=== PATIENT | male | born 1970 ===

== ENCOUNTER 2020-04-14 11:08 | Outpatient (REF) | payer BC, SELFPAY | END 2020-04-14 11:09 | disposition home or self-care (01) | LOC: HO.LAB 11:08 | PROVIDERS: PCP Internal Medicine; Visit Provider Internal Medicine | DX: Z20.822 Contact with and (suspected) exposure to COVID-19 (principal) | CPT/HCPCS: 36415; C9803; U0003; U0005 ==

== ENCOUNTER 2020-05-16 09:06 | Outpatient (REF) | payer BC, SELFPAY | END 2020-05-16 09:07 | disposition home or self-care (01) | LOC: HO.LAB 09:06 | PROVIDERS: Visit Provider Internal Medicine | DX: Z20.822 Contact with and (suspected) exposure to COVID-19 (principal) | CPT/HCPCS: 36415; C9803; U0003; U0005 ==

== ENCOUNTER 2020-05-28 11:55 | Outpatient (REF) | payer BC, SELFPAY | END 2020-05-28 11:56 | disposition home or self-care (01) | LOC: HO.LAB 11:55 | PROVIDERS: Visit Provider Nurse Practitioner Family | DX: Z13.89 Encounter for screening for other disorder (principal) ==

== ENCOUNTER 2020-05-28 12:10 | Outpatient (REF) | payer BC, SELFPAY ==
--- NOTE | ~2020-05-28 | XR_ITS ---
EXAMINATION: XR CHEST CLINICAL INFORMATION: Cough. COMPARISON: None TECHNIQUE: 2 views of the chest were obtained. FINDINGS: Lungs are hyperinflated and clear. The heart size and pulmonary vascularity is normal. No pleural effusion or pneumothorax. No gross bony abnormality. XR/XR chest 2V IMPRESSION: Hyperinflated lungs without acute process.
[2020-05-28 14:54] LABS: Influenza A PCR NEGATIVE (Negative); Influenza B PCR NEGATIVE (Negative); Resp Syncy Virus RNA Qual PCR NEGATIVE (Negative); SARS COV2 PCR INHOUSE NEGATIVE (Negative)
== END 2020-05-28 12:11 | disposition home or self-care (01) ==
LOC: HO.HMGCX 12:10
PROVIDERS: PCP Internal Medicine; Visit Provider Nurse Practitioner Family
DX: R05 Cough (principal); Z20.822 Contact with and (suspected) exposure to COVID-19
CPT/HCPCS: 0241U; 36415; 71046

== ENCOUNTER 2020-10-16 14:05 | Outpatient (REF) | payer OTHER, SELFPAY ==
--- NOTE | ~2020-10-16 | XR_ITS ---
EXAMINATION: XR ABDOMEN COMPLETE CLINICAL INDICATION: K59.00 - Constipation, unspecified COMPARISON: None TECHNIQUE: Supine x2 views of the abdomen are obtained. Upright view is also obtained for a total of 3 views. FINDINGS: There is scattered gas in the bowel of normal caliber. There is no gaseous dilatation of bowel or abnormal collections of gas. There is no excessive stool burden. No air-fluid levels or free air or pneumatosis. No visible urinary tract calculi. The lung bases are clear. Bony structures are unremarkable. XR/XR abdomen min 2V IMPRESSION: Unremarkable examination.
== END 2020-10-16 14:06 | disposition home or self-care (01) ==
LOC: HO.HMGCX 14:05
PROVIDERS: PCP Internal Medicine; Visit Provider Hospitalist
DX: K59.00 Constipation, unspecified (principal)
CPT/HCPCS: 74019

== ENCOUNTER 2020-12-05 11:38 | Outpatient (REF) | payer OTHER, SELFPAY ==
[2020-12-05 13:37] LABS: Alanine Aminotransferase 31 U/L (0-40); Albumin Level 4.6 g/dL (3.5-5.0); Alkaline Phosphatase 58 U/L (39-117); Anion Gap 11 (12-20); Aspartate Amino Transferase 24 U/L (5-37); Bilirubin Total 2.1 mg/dL (0.0-1.0); Blood Urea Nitrogen 9 mg/dL (9-16); Calcium 10.2 mg/dL (8.4-10.2); Carbon Dioxide 28 mmol/L (22-29); Chloride 103 mmol/L (96-108); Cholesterol 272 mg/dL; Estimated Glomerular Filt Rate > 60; Glucose Fasting 88 mg/dL (60-99); HDL Cholesterol 28 mg/dL; LDL Cholesterol Calculated 204 mg/dl; Potassium 4.8 mmol/L (3.3-5.1); Sodium 137 mmol/L (135-145); Triglycerides 204 mg/dL
== END 2020-12-05 11:39 | disposition home or self-care (01) ==
LOC: HO.LAB 11:38
PROVIDERS: PCP Internal Medicine; Visit Provider Internal Medicine
DX: R74.01 Elevation of levels of liver transaminase levels (principal); E78.5 Hyperlipidemia, unspecified
CPT/HCPCS: 36415; 80053; 80061

== ENCOUNTER 2021-03-22 06:25 | Emergency (ER) | payer OTHER, SELFPAY ==
--- NOTE | ~2021-03-22 | XR_ITS ---
EXAMINATION: XR CHEST CLINICAL INFORMATION: Dyspnea COMPARISON: Previous chest x-ray April 2020 TECHNIQUE: Frontal view of the chest was obtained. FINDINGS: No significant abnormality is noted involving the heart, lungs, mediastinum, bony thorax or soft tissues. XR/XR chest 1V IMPRESSION: Unremarkable examination.
[2021-03-22 07:07] VITALS: PULSE 109; RESP 28; O2SAT 100; BMI 23.6
--- NOTE | 2021-03-22 07:24 | ECG_ITS ---
Test Reason : DIZZ Blood Pressure : / mmHG Vent. Rate : 095 BPM Atrial Rate : 095 BPM P-R Int : 158 ms QRS Dur : 086 ms QT Int : 340 ms P-R-T Axes : 005 034 023 degrees QTc Int : 427 ms Normal sinus rhythm Nonspecific T wave abnormality Abnormal ECG No previous ECGs available Referred By: Generic ED Physician Electronically Signed By:Johann Melgar
[2021-03-22 07:35] LABS: Hemoglobin 15.7 g/dl (14.0-18.0); Mean Corpuscular HGB Conc 34.9 g/dl (31.0-36.0); Mean Platelet Volume 9.2 fL (9.4-12.4); Platelet Count 340 X10*3/uL (160-400); Red Blood Count 5.23 X10*6/uL (4.60-5.80); Red Cell Distribution Width 14.6 % (11.0-16.0); White Blood Count 7.4 X10*3/uL (4.8-10.8)
[2021-03-22] MEDS: LORazepam 2 MG/ML VIAL 1 MG IVPUSH (07:47)
[2021-03-22 07:50] LABS: Anion Gap 17 (12-20); Blood Urea Nitrogen 10 mg/dL (9-16); Calcium 9.9 mg/dL (8.4-10.2); Carbon Dioxide 17 mmol/L (22-29); Chloride 108 mmol/L (96-108); Creatinine Clr Calc Pharmacy 74.3; Estimated Glomerular Filt Rate > 60; Glucose Random 94 mg/dL (60-115); Potassium 3.8 mmol/L (3.3-5.1); Sodium 138 mmol/L (135-145)
[2021-03-22 07:53] LABS: COVID-19 Test Negative (Negative)
[2021-03-22 07:58] LABS: Troponin-I High Sensitivity 4.2 ng/L (<3.5-35.0)
--- NOTE | 2021-03-22 08:05 | ED_ITS ---
HPI - General Adult General Chief complaint: Dyspnea Stated complaint: SOB Time Seen by Provider: 03/22/21 07:44 Source: patient Limitations: no limitations History of Present Illness HPI narrative: This is a 50-year-old male who states that he had COVID around February 23. He complains of recent shortness of breath and fatigue. He den ies any recent fever. He denies a history of asthma or COPD. He has not had any treatment for COVID such as monoclonal antibodies. He states others in his family were sick. He denies any chest pain. He has a mild cough. He denies any abdominal pain, vomiting, diarrhea. He denies any swelling in his lower extremities. He is a former smoker quit about 12 years ago. Related Data Previous Rx's Medication Instructions Recorded naproxen 500 mg tablet 500 mg PO BID PRN 7 Days #14 tab 12/09/20 rosuvastatin 10 mg tablet 10 mg PO DAILY 90 Days #90 tab 12/09/20 clotrimazole-betamethasone 1 1 appl TOPICAL BID 14 Days #15 g 12/24/20 %-0.05 % topical cream Allergies Allergy/AdvReac Type Severity Reaction Status Date / Time atorvastatin AdvReac Intermediate elevated Verified 12/09/20 10:19 lilver enzymes lisinopril AdvReac Intermediate cough Verified 12/09/20 10:19 Review of Systems Review of Systems: Yes all other systems are reviewed and are negative Constitutional: Constitutional: Reports as per HPI and Denies fever(s) Eyes: Eyes: Reports as per HPI and Reports no additional eye complaints ENT: Reports system reviewed and no additional complaints, except as documented, Reports as per HPI, Denies nasal congestion, Denies nasal discharge and Denies sore throat Cardiovascular: Cardiovascular: Reports as per HPI, Denies chest pain and Denies dyspnea Respiratory: Respiratory: Reports as per HPI, Denies cough and Denies dyspnea Gastrointestinal: Gastrointestinal: Reports as per HPI, Denies abdominal pain, Denies diarrhea and Denies vomiting Genitourinary: Genitourinary: Reports as per HPI, Denies hematuria, Denies dysuria and Denies urinary frequency Musculoskeletal: Musculoskeletal: Reports no additional musculoskeletal complaints and Denies numbness Integumentary/Breasts: Skin/Breast: Reports as per HPI and Denies rash Neurologic: Reports as per HPI, Denies focal weakness, Denies numbness and Denies Sensory deficit (Neuro) Psychiatric: Psychiatric: Reports no additional psychiatric complaints and Reports as per HPI Endocrine: Endocrine: Reports no additional endocrine complaints and Reports as per HPI Hematologic/Lymphatic: Hematologic/Lymphatic: Reports no additional hematologic/lymphatic complaints, Reports as per HPI and Reports other (No peripheral edema) [facility] Past Medical History Medical History Dyslipidemia Elevated TSH Essential hypertension Heat rash Joint pain Mixed hyperlipidemia Transaminitis Surgical History History of abdominal surgery History of herniorrhaphy Family History Family History Father Prostate cancer Mother Medical history unknown Social History Social History Housing: House Alcohol intake: current Alcohol intake frequency: other Alcohol type: beer Patient Tobacco Use Status: Former Tobacco user Tobacco use type: Cigarette e-Cigarette/Vaping Use: Never Used Second Hand Smoke Exposure: No service: No Current occupational status: employed Current occupational exposures/hazards: No Physical Exam Vital Signs: Vital Signs: Last Vital Signs Pulse 111 H 03/22/21 09:47 Resp 20 03/22/21 09:47 BP 134/79 03/22/21 09:47 Pulse Ox 96 03/22/21 09:47 BMI result Body Mass Index 23.6 Const: General: cooperative, no acute distress and alert Orientation/consciousness: patient oriented x3 HENMT: Head: Yes normal to inspection Eyes: General: appearance normal, both eyes and all related structures Eyelids: Yes eyelids normal Conjunctivae: conjunctivae normal Pupils: Equal, round and reactive pupils present Neck: Neck: Yes normal visual inspection and Yes supple Chest: Chest palpation & inspection: normal inspection of the chest Resp: Effort & Inspection: normal respiratory effort Auscultation: clear to auscultation bilaterally Cardio: Rate: regular rate Rhythm: regular rhythm Heart sounds: S1 normal heart sound present, S2 normal heart sound present, no gallops, no murmurs and no rubs GI: Palpation (GI): Soft to palpation, nontender and Other GI palpation findings present (Non-distended) Auscultation: normal bowel sounds Skin: General skin exam: no rashes or lesions noted Neuro: General: patient oriented x3, no focal motor deficits and CN's II-XI intact bilaterally Cranial nerves: Yes Equal, round and reactive pupils present Cognition (Neuro): normal cognition Motor exam (neuro): 5/5 motor strength present throughout Sensory Exam: No Sensory deficit (Neuro) Extrem: General: Yes normal to inspection and Yes no pedal edema Psych: Appearance: grossly normal Affect: normal affect Medical Decision Making MDM Narrative Medical decision making narrative: Patient with COVID over 3 weeks ago. Patient complains of recent dyspnea and fatigue. Patient denies chest pain. Oxygen level is normal. Chest x-ray is negative. Patient was borderline tachycardic and EKG had nonspecific T-wave changes. D-dimer is negative. Patient without any pleuritic symptoms. Patient felt better after Ativan and a DuoNeb, was sleeping son recently. Upon re-evaluation pulse oximetry is 96% on room air. Heart rate is 90. Lab Data Result diagrams: 03/22/21 07:30 03/22/21 07:30 Labs: Lab Results 03/22/21 03/22/21 03/22/21 Range/Units 07:30 07:30 07:30 WBC 7.4 (4.8-10.8) X10*3/uL RBC 5.23 (4.60-5.80) X10*6/uL Hgb 15.7 (14.0-18.0) g/dl Hct 45.0 (42.0-52.0) % MCV 86.0 (80.0-98.0) fL MCH 30.0 (27.0-33.0) pg MCHC 34.9 (31.0-36.0) g/dl RDW 14.6 (11.0-16.0) % Plt Count 340 (160-400) X10*3/uL MPV 9.2 L (9.4-12.4) fL Absolute Nucleated RBC 0.000 (0.0-0.012) X10*3/uL Nucleated RBC % (auto) 0.0 (0.0-0.2) /100WBC D-Dimer High Sensitivty NG/ML Sodium 138 (135-145) mmol/L Potassium 3.8 D (3.3-5.1) mmol/L Chloride 108 (96-108) mmol/L Carbon Dioxide 17 L (22-29) mmol/L Anion Gap 17 (12-20) BUN 10 (9-16) mg/dL Creatinine 1.20 (0.5-1.4) mg/dL Estim Creat Clear Calc 74.3 Estimated GFR > 60 Random Glucose 94 (60-115) mg/dL Calcium 9.9 (8.4-10.2) mg/dL Troponin I High Sens 4.2 (<3.5-35.0) ng/L COVID-19 (HANNA) (Negative) COVID-19 [place] 03/22/21 03/22/21 Range/Units 07:30 08:44 WBC (4.8-10.8) X10*3/uL RBC (4.60-5.80) X10*6/uL Hgb (14.0-18.0) g/dl Hct (42.0-52.0) % MCV (80.0-98.0) fL MCH (27.0-33.0) pg MCHC (31.0-36.0) g/dl RDW (11.0-16.0) % Plt Count (160-400) X10*3/uL MPV (9.4-12.4) fL Absolute Nucleated RBC (0.0-0.012) X10*3/uL Nucleated RBC % (auto) (0.0-0.2) /100WBC D-Dimer High Sensitivty < 150 NG/ML Sodium (135-145) mmol/L Potassium (3.3-5.1) mmol/L Chloride (96-108) mmol/L Carbon Dioxide (22-29) mmol/L Anion Gap (12-20) BUN (9-16) mg/dL Creatinine (0.5-1.4) mg/dL Estim Creat Clear Calc Estimated GFR Random Glucose (60-115) mg/dL Calcium (8.4-10.2) mg/dL Troponin I High Sens (<3.5-35.0) ng/L COVID-19 (HANNA) Negative (Negative) [facility]LED[facility]19 [place] See Note Imaging Data Chest x-ray: Attestation: I personally reviewed and interpreted this imaging study as follows: Radiologist's impression: FINDINGS: No significant abnormality is noted involving the heart, lungs, mediastinum, bony thorax or soft tissues. XR/XR chest 1V IMPRESSION: Unremarkable examination. ? ECG Data Attestation: I personally reviewed and interpreted this ECG as follows: Interpretation: Sinus rhythm with a rate of 95. Nonspecific T-wave changes in lateral leads as well as an inferior leads. No ninfa ST elevation or depression. Discharge Plan Discharge Clinical Impression: Dyspnea Patient Disposition: Home, Self-Care Instructions: Dyspnea (ED) Additional Instructions: Your lab tests, and chest x-ray were normal. Your oxygen level was also normal. A screening test for a blood clot in your lung was also negative. Follow-up with her primary care physician. Return for any new or worsened symptoms. Prescriptions: No Action clotrimazole-betamethasone 1-0.05 % cream 1 appl topical BID 14 Days Qty: 15 RF: 2 rosuvastatin 10 mg tablet 10 mg PO DAILY 90 Days Qty: 90 RF: 1 naproxen 500 mg tablet 500 mg PO BID PRN (Reason: pain) 7 Days Qty: 14 RF: 0 Interventions: ED Discharge Assessment Last Done: 03/22/21 12:49 Discharge Date/Time: 03/22/21 12:49
[2021-03-22] MEDS: Benzonatate 100 MG CAPSULE 200 MG PO (08:11)
[2021-03-22] MEDS: Albuterol Sulfate (0.083%) 2.5 MG/3 ML VIAL.NEB 5 MG INHALE (08:28)
[2021-03-22 08:32] VITALS: PULSE 101; RESP 16; O2SAT 94
[2021-03-22 09:06] LABS: D Dimer High Sensitivity < 150 NG/ML
[2021-03-22 09:30] VITALS: BP 108/72; PULSE 100; RESP 20; O2SAT 90
[2021-03-22 09:35] VITALS: PULSE 102; O2SAT 90
[2021-03-22 09:47] VITALS: BP 134/79; PULSE 111; RESP 20; O2SAT 96
== END 2021-03-22 12:49 | disposition home or self-care (01) ==
PROVIDERS: Emergency Provider Emergency Medicine; PCP Internal Medicine
DX: R06.02 Shortness of breath (principal); Z87.891 Personal history of nicotine dependence; Z20.822 Contact with and (suspected) exposure to COVID-19; Z79.899 Other long term (current) drug therapy
CPT/HCPCS: 36415; 71045; 80048; 84484; 85027; 85379; 87635; 93005; 94640; 94644; 96372; 99285; J2060

== ENCOUNTER 2021-04-25 10:17 | Outpatient (REF) | payer OTHER, SELFPAY ==
[2021-04-25 11:59] LABS: Alanine Aminotransferase 60 U/L (0-40); Albumin Level 4.2 g/dL (3.5-5.0); Alkaline Phosphatase 74 U/L (39-117); Anion Gap 14 (12-20); Aspartate Amino Transferase 28 U/L (5-37); Blood Urea Nitrogen 7 mg/dL (9-16); Calcium 9.8 mg/dL (8.4-10.2); Carbon Dioxide 27 mmol/L (22-29); Chloride 103 mmol/L (96-108); Cholesterol 171 mg/dL; Estimated Glomerular Filt Rate > 60; Glucose Fasting 98 mg/dL (60-99); HDL Cholesterol 38 mg/dL; LDL Cholesterol Calculated 110 mg/dl; Potassium 4.8 mmol/L (3.3-5.1); Sodium 139 mmol/L (135-145); Total Protein 7.3 g/dL (6.5-8.0); Triglycerides 117 mg/dL
[2021-05-01 13:21] LABS: Vitamin D 25-OH, D2 <4 ng/mL; Vitamin D 25-OH, D3 4 ng/mL; Vitamin D 25-OH, Total 4 ng/mL (30-100)
== END 2021-04-25 10:18 | disposition home or self-care (01) ==
LOC: HO.LAB 10:17
PROVIDERS: PCP Internal Medicine; Visit Provider Internal Medicine
DX: E78.2 Mixed hyperlipidemia (principal); E55.9 Vitamin D deficiency, unspecified; R79.89 Other specified abnormal findings of blood chemistry
CPT/HCPCS: 36415; 80053; 80061; 82306; 84443

== ENCOUNTER 2021-05-14 13:26 | Outpatient (REF) | payer OTHER, SELFPAY ==
--- NOTE | ~2021-05-14 | XR_ITS ---
EXAMINATION: XR CHEST CLINICAL INFORMATION: Chronic cough COMPARISON: Previous chest x-ray February 2021 TECHNIQUE: 2 views of the chest were obtained. FINDINGS: No significant abnormality is noted involving the heart, lungs, mediastinum, bony thorax or soft tissues. XR/XR chest 2V IMPRESSION: Unremarkable examination.
== END 2021-05-14 13:27 | disposition home or self-care (01) ==
LOC: HO.XRAY 13:26
PROVIDERS: PCP Internal Medicine; Visit Provider Internal Medicine
DX: R05.3 Chronic cough (principal); J45.909 Unspecified asthma, uncomplicated
CPT/HCPCS: 71046

== ENCOUNTER 2021-05-26 13:10 | Outpatient (REF) | payer OTHER, SELFPAY ==
--- NOTE | ~2021-05-26 | XR_ITS ---
EXAMINATION: XR CHEST CLINICAL INFORMATION: Moderate persistent asthma COMPARISON: None TECHNIQUE: 2 views of the chest were obtained. FINDINGS: The lungs are well-expanded and clear. The heart size and pulmonary vascularity is normal. No gross bony abnormality seen. XR/XR chest 2V IMPRESSION: Unremarkable chest exam.
== END 2021-05-26 13:11 | disposition home or self-care (01) ==
LOC: HO.XRAY 13:10
PROVIDERS: PCP Internal Medicine; Visit Provider Internal Medicine Pulmonary Disease
DX: J45.40 Moderate persistent asthma, uncomplicated (principal)
CPT/HCPCS: 71046

== ENCOUNTER 2021-06-12 08:52 | Outpatient (REF) | payer OTHER, SELFPAY ==
--- NOTE | 2021-06-12 13:48 | PFT_ITS ---
FLOWS: FEV1 123% predicted at 3.69 L. FVC 104% of predicted at 4.76 L. FEV1 to FVC ratio of 0.78. No bronchodilator response. LUNG VOLUMES: Total lung capacity 102% of predicted at 6.73 L. Residual volume 112% of predicted at 2.23 L. Slow vital capacity 98% of predicted at 4.50 L. Expiratory reserve volume 35% of predicted at 0.48 L. Diffusion capacity is mildly decreased, diffusion capacity corrects to normal after adjustment for alveolar ventilation. IMPRESSION: No obstructive or restrictive ventilatory defect. No bronchodilator response. Enrique Soto MD AP/MODL / [id number]
== END 2021-06-12 08:53 | disposition home or self-care (01) ==
LOC: HO.RESP 08:52
PROVIDERS: PCP Internal Medicine; Visit Provider Internal Medicine Pulmonary Disease
DX: J45.40 Moderate persistent asthma, uncomplicated (principal); R06.00 Dyspnea, unspecified
CPT/HCPCS: 94060; 94727; 94729

== ENCOUNTER → 2021-06-19 08:58 | Outpatient (BNVA) | payer OTHER, SELFPAY | PROVIDERS: PCP Internal Medicine; Visit Provider Internal Medicine Pulmonary Disease | DX: J45.40 Moderate persistent asthma, uncomplicated (principal) ==

== ENCOUNTER 2021-07-17 10:43 | Outpatient (REF) | payer OTHER, SELFPAY ==
[2021-07-17 11:18] LABS: MANUAL DIFF FLAG NO
[2021-07-17 11:51] LABS: Basophils Percent Auto 0.7 % (0-2); Eosinophils Absolute Auto 0.2 X10*3/uL (0.0-0.4); Eosinophils Percent Auto 3.6 % (0-4); Hematocrit 47.6 % (42.0-52.0); Hemoglobin 15.6 g/dl (14.0-18.0); Imm Gran Abs Auto 0.01 X10*3/uL (0.00-0.03); Imm Gran Pct Auto 0.2 % (0.0-0.4); Lymphocytes Absolute Auto 1.5 X10*3/uL (1.2-4.9); Lymphocytes Percent Auto 26.7 % (20-40); Mean Corpuscular HGB Conc 32.8 g/dl (31.0-36.0); Mean Corpuscular Hemoglobin 28.5 pg (27.0-33.0); Mean Platelet Volume 9.3 fL (9.4-12.4); Monocytes Absolute Auto 0.7 X10*3/uL (0.1-1.2); Monocytes Percent Auto 11.8 % (2-11); Neutrophils Absolute Auto 3.1 x10*3/uL (2.0-8.3); Platelet Count 341 X10*3/uL (160-400); Red Blood Count 5.47 X10*6/uL (4.60-5.80); Red Cell Distribution Width 12.8 % (11.0-16.0); White Blood Count 5.5 X10*3/uL (4.8-10.8)
== END 2021-07-17 10:44 | disposition home or self-care (01) ==
LOC: HO.LAB 10:43
PROVIDERS: PCP Internal Medicine; Visit Provider Internal Medicine Pulmonary Disease
DX: J45.40 Moderate persistent asthma, uncomplicated (principal); J44.9 Chronic obstructive pulmonary disease, unspecified; Z91.09 Other allergy status, other than to drugs and biological substances
CPT/HCPCS: 36415; 82785; 85025; 86003

== ENCOUNTER 2021-08-12 07:34 | Outpatient (REF) | payer OTHER, SELFPAY | END 2021-08-12 07:35 | disposition home or self-care (01) | LOC: HO.MDS 07:34 | PROVIDERS: PCP Internal Medicine; Visit Provider Internal Medicine Pulmonary Disease | DX: J45.40 Moderate persistent asthma, uncomplicated (principal) | CPT/HCPCS: 96372; J2357 ==

== ENCOUNTER 2021-08-26 10:36 | Outpatient (REF) | payer OTHER, SELFPAY | END 2021-08-26 10:37 | disposition home or self-care (01) | LOC: HO.MDS 10:36 | PROVIDERS: PCP Internal Medicine; Visit Provider Internal Medicine Pulmonary Disease | DX: J45.40 Moderate persistent asthma, uncomplicated (principal) | CPT/HCPCS: 96372; J2357 ==

== ENCOUNTER 2022-05-20 15:04 | Outpatient (REF) | payer OTHER, SELFPAY ==
[2022-05-20 16:10] LABS: Influenza A PCR NEGATIVE (Negative); Influenza B PCR NEGATIVE (Negative); Resp Syncy Virus RNA Qual PCR NEGATIVE (Negative); SARS COV2 PCR INHOUSE NEGATIVE (Negative)
== END 2022-05-20 15:05 | disposition home or self-care (01) ==
LOC: HO.LNP 15:04
PROVIDERS: Visit Provider Internal Medicine
DX: R09.89 Other specified symptoms and signs involving the circulatory and respiratory systems (principal); Z20.822 Contact with and (suspected) exposure to COVID-19
CPT/HCPCS: 0241U

== ENCOUNTER 2022-12-28 10:56 | Outpatient (AMB) | payer OTHER, SELFPAY ==
--- NOTE | 2022-12-28 11:00 | MHC.PC.OV ---
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 Accompanied by: Self / Same As Patient Allergies atorvastatin Adverse Reaction (Intermediate, Verified 12/28/22 11:10) elevated lilver enzymes lisinopril Adverse Reaction (Intermediate, Verified 12/28/22 11:10) cough Medication List - Last Reconciled 12/28/22 by Lyn Ware MD amlodipine 10 mg PO DAILY 90 days cholecalciferol (vitamin D3) 50 mcg PO DAILY 90 days rosuvastatin 10 mg PO DAILY 90 days Tobacco use date assessed: 07/27/22 Dental Screening Dental Screen Date: 12/28/22 Did you have a dental visit in the last 12 months?: Yes Did you have a dental problem in the last 6 months where you did not have access to dental care?: No Was dental information given to patient?: Patient has dentist HPI HPI Comments History of Present Illness Details This is a 52-year-old male with hypertension, dyslipidemia, moderate persistent asthma mild recurrent major depression that comes today for follow-up on his conditions. Blood pressure has been stable with medications. On statins for cholesterol which reports no side effects. Has chronic cough with occasional expiratory wheezing due to asthma and I will prescribe a longstanding inhaler and also a rescue inhaler to be used as needed. Depression is in remission. Has some skin lumps in face and will be referred to dermatology. [facility] Medical History (Updated 12/28/22 @ 11:26 by Lyn Ware MD) Moderate persistent asthma Mild recurrent major depression Chronic cough Joint pain Elevated TSH Mixed hyperlipidemia Heat rash Transaminitis Dyslipidemia Essential hypertension Surgical History History of abdominal surgery History of herniorrhaphy Family History Father Prostate cancer Mother Medical history unknown Social History Housing: House Alcohol intake: current Alcohol intake frequency: a few times a week Alcohol type: beer Patient Tobacco Use Status: Former Tobacco user Tobacco use type: Cigarette e-Cigarette/Vaping Use: Never Used Second Hand Smoke Exposure: No service: No Current occupational status: employed Current occupational exposures/hazards: No Cognitive needs: No Hearing needs: No Vision needs: Yes Questionnaire Thrive Questionnaire Date Thrive assessed: 07/27/22 MAXIMO-7 AMB Questionnaire MAXIMO-7 Date MAXIMO - 7 assessed: 07/27/22 Source: Developed by Drs. Tray King, Callie Fofana, Chris Felix and colleagues, with an educational annette from [employer]. Review of Systems Const All systems reviewed & are unremarkable except as noted in HPI and below Eyes Reports no additional complaints, Denies change in vision and Denies other visual disturbances Card Denies chest pain at rest, Denies chest pain with activity, Denies edema, Denies irregular heart rhythm, Denies claudication, Denies dyspnea, Denies dyspnea on exertion, Denies orthopnea, Denies paroxysmal nocturnal dyspnea and Denies slow heart rate Resp Denies cough, Denies dyspnea and Denies dyspnea on exertion GI Denies abdominal pain, Denies change in bowel habits, Denies excessive flatus, Denies nausea and Denies vomiting Denies urinary hesitancy, Denies urinary incontinence and Denies urinary urgency Musc Denies abnormal gait, Denies atrophy, Denies deformity and Denies limited range of motion Skin/Breast Denies bleeding lesions, Denies changing lesions and Denies rash Neuro Denies abnormal gait and Denies lack of coordination Physical exam (Primary Care) Vital Signs: Last Vital Signs Pulse 84 12/28/22 11:01 BP 126/80 12/28/22 11:01 Pulse Ox 98 12/28/22 11:01 Oxygen Delivery Method Room Air 12/28/22 11:01 BMI result Body Mass Index 26.3 Tobacco/Smoking Status: Tobacco use Status Tobacco use date assessed 07/27/22 12/28/22 11:07 Patient Tobacco Use Status Former Tobacco user 12/28/22 11:07 Tobacco use type Cigarette 12/28/22 11:07 e-Cigarette/Vaping Use Never Used 12/28/22 11:07 Thrive Assessment: Date of Thrive Assessment Date Thrive assessed 07/27/22 12/28/22 11:07 Eyes General: appearance normal, both eyes and all related structures Eyelids: Yes eyelids normal Conjunctivae: conjunctivae normal Neck Neck: Yes normal visual inspection and Yes supple Resp Effort & Inspection: normal respiratory effort Auscultation: clear to auscultation bilaterally Cardio Jugular venous distension: no JVD Rate: regular rate Rhythm: regular rhythm Heart sounds: S1 normal heart sound present and S2 normal heart sound present Extrem General: Yes full ROM Office Procedures Flu Questionnaire Does the patient have a severe egg allergy?: No Does the patient have severe life threatening allergies?: No Does the patient have a fever or illness today?: No Has the patient ever had Guillain-Brunswick Syndrome?: No Has the patient ever had any past reaction to a flu shot?: No Immunizations flu vacc [id number] 6mos up(PF) 60 mcg(15 mcgx4)/0.5 mL IM syringe Performing Provider: Lyn Ware MD Performing Location: [facility] Administered by: VIOLET Phelan on 12/28/22 11:25 Dose Route Admin Location Dispensed Lot Number Expiration Date NDC Bpo Specialist 0.5 mL IM Left Deltoid 0.5 mL [id number] 08/28/23 56969-476-71 [employer] VIS Given Date VIS Provided VIS Publication Date 12/28/22 Single Vaccine 20 Eligibility Eligibility Date Funding Source Not [facility] Eligible 12/28/22 Private Assessment and Plan Assessment & Plan (1) Moderate persistent asthma: Code(s): J45.40 - Moderate persistent asthma, uncomplicated Plan: Continue longstanding inhaler. Rachid rescue inhaler as needed. (2) Essential hypertension: Code(s): I10 - Essential (primary) hypertension Plan: Continue amlodipine. Blood pressure goal is equal or less than 130/80. (3) Dyslipidemia: Code(s): E78.5 - Hyperlipidemia, unspecified Plan: Continue statins. (4) Mild recurrent major depression: Code(s): F33.0 - Major depressive disorder, recurrent, mild Plan: In remission. Orders: Orders Influenza [id number] Immunization Today Z23 - Encounter for immunization Referrals Dermatology Referral L98.9 - Disorder of the skin and subcutaneous tissue, unspecified Medications: New fluticasone propionate 44 mcg/actuation (Flovent HFA) administer with spacer 1 puff inhalation BID 30 days 10.6 grams 2RF J45.40 - Moderate persistent asthma, uncomplicated Ventolin HFA 90 mcg/actuation (albuterol sulfate) 2 puffs inhalation Q6H 30 days PRN 18 grams 1RF shortness of breath or wheezing NS Coding Level of Care Code Est Pt Level 4 (19528) Diagnoses Moderate persistent asthma J45.40 Essential hypertension I10 Dyslipidemia E78.5 Mild recurrent major depression F33.0 Time Spent (min) 22
[2022-12-28 11:01] VITALS: BP 126/80; PULSE 84; O2SAT 98; BMI 26.3
== END 2022-12-28 11:18 | disposition home or self-care (01) ==
PROVIDERS: Visit Provider Internal Medicine
DX: J45.40 Moderate persistent asthma, uncomplicated (principal); I10 Essential (primary) hypertension; E78.5 Hyperlipidemia, unspecified; F33.0 Major depressive disorder, recurrent, mild; Z23 Encounter for immunization
CPT/HCPCS: 90471; 90686; 99214

== ENCOUNTER 2023-08-01 12:50 | Outpatient (AMB) | payer OTHER, SELFPAY ==
--- NOTE | 2023-08-01 12:57 | MHC.PC.OV ---
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 Accompanied by: Self / Same As Patient Allergies atorvastatin Adverse Reaction (Intermediate, Verified 08/01/23 13:08) elevated lilver enzymes lisinopril Adverse Reaction (Intermediate, Verified 08/01/23 13:08) cough Medication List - Last Reconciled 08/01/23 by Lyn Ware MD amlodipine 10 mg PO DAILY 90 days cholecalciferol (vitamin D3) 50 mcg PO DAILY 90 days fluticasone propionate 44 mcg/actuation (Flovent HFA) 1 puff inhalation BID 30 days rosuvastatin 10 mg PO DAILY 90 days Ventolin HFA 90 mcg/actuation (albuterol sulfate) 2 puffs inhalation Q6H PRN 30 days NS Tobacco use date assessed: 08/01/23 Dental Screening Dental Screen Date: 08/01/23 Did you have a dental visit in the last 12 months?: No Did you have a dental problem in the last 6 months where you did not have access to dental care?: No Was dental information given to patient?: Patient has dentist HPI HPI Comments History of Present Illness Details This is a 53-year-old male that comes for his physical exam. Last colonoscopy was 2018 and he was normal. No family history of colon cancer. No chest pain or shortness breath. Blood pressure well controlled with medications. He has asthma-COPD overlap syndrome and use rescue inhaler less than a month. Has mild recurrent major depression that has been in remission. [facility] Medical History Moderate persistent asthma Mild recurrent major depression Chronic cough Joint pain Elevated TSH Mixed hyperlipidemia Heat rash Transaminitis Dyslipidemia Essential hypertension Surgical History History of abdominal surgery History of herniorrhaphy Family History (Updated 08/01/23 @ 13:12 by Lyn Ware MD) Father Prostate cancer Mother Diabetes mellitus Social History Housing: House Alcohol intake: current Alcohol intake frequency: a few times a week Alcohol type: beer Patient Tobacco Use Status: Former Tobacco user Tobacco use type: Cigarette e-Cigarette/Vaping Use: Never Used Second Hand Smoke Exposure: No service: No Current occupational status: employed Current occupational exposures/hazards: No Cognitive needs: No Hearing needs: No Vision needs: Yes Questionnaire PHQ-9 Over the last 2 weeks, how often have you been bothered by any of the following problems? 1. Little interest or pleasure in doing things: not at all 2. Feeling down, depressed, or hopeless: not at all 3. Trouble falling or staying asleep, or sleeping too much: not at all 4. Feeling tired or having little energy: not at all 5. Poor appetite or overeating: not at all 6. Feeling bad about yourself - or that you are a failure or have let yourself or your family down: not at all 7. Trouble concentrating on things, such as reading the newspaper or watching television: not at all 8. Moving or speaking so slowly that other people could have noticed. Or the opposite - being so fidgety or restless that you have been moving around a lot more than usual: not at all 9. Thoughts that you would be better off or of hurting yourself in some way: not at all Total score: 0 Depression Screening Interpretation: Negative Depression Screening Done: Yes 34230 - PHQ-9 Billing: Yes Source: Developed by Drs. Tray King, Callie Fofana, Chris Felix and colleagues, with an educational annette from [employer]. Thrive Questionnaire Date Thrive assessed: 08/01/23 I am a: Patient What is your living situation today?: I have a steady place to live Within the past 12 months, did the food you bought not last and you didn't have the money to get more?: Never true Within the past 12 months, did you worry whether your food would run out before you got money to buy more?: Never true Do you have trouble paying for medicines?: No Do you have trouble getting transportation to medical appointments?: No Do you have trouble paying your heating and electricity bill?: No Do you have trouble taking care of your child, family member or friend?: No Do you have trouble with day-to-day activities such as bathing, preparing meals, shopping, managing finances, etc.?: No Are you currently unemployed and looking for a job?: No Are you interested in more education?: No Please select the resources that you would like help with: None Currently or been in a relationship where the following occur: no concerns reported THRIVE Score: 0 AUDIT C Alcohol Use Questionnaire (AUDIT-C) 1. How often do you have a drink containing alcohol?: 2-3 times a week 2. How many drinks containing alcohol do you have on a typical day when you are drinking?: 1 or 2 3. How often do you have six or more drinks on one occasion?: Never Total Score: 3 Score Reviewed/Action Taken: No MAXIMO-7 AMB Questionnaire MAXIMO-7 Date MAXIMO - 7 assessed: 08/01/23 Feeling nervous, anxious, or on edge: 0 = Not at all Not being able to stop or control worryin = Not at all Worrying too much about different things: 0 = Not at all Trouble relaxin = Not at all Being so restless that it is hard to sit still: 0 = Not at all Becoming easily annoyed or irritable: 0 = Not at all Feeling afraid as if something awful might happen: 0 = Not at all Total MAXIMO-7 score (0-4 normal; 5-9 mild; 10-14 moderate; 15-21 severe): 0 Source: Developed by Drs. Tray King, Callie Fofana, Chris Felix and colleagues, with an educational annette from [employer]. MAXIMO-7 Assessment Billing MAXIMO-7 Assessment Tool: MAXIMO-7 Assessment 43684 Review of Systems Const All systems reviewed & are unremarkable except as noted in HPI and below Card Denies chest pain at rest, Denies chest pain with activity, Denies edema, Denies irregular heart rhythm, Denies claudication, Denies dyspnea, Denies dyspnea on exertion, Denies orthopnea, Denies paroxysmal nocturnal dyspnea and Denies slow heart rate Resp Denies cough, Denies dyspnea and Denies dyspnea on exertion GI Denies abdominal pain, Denies change in bowel habits, Denies excessive flatus, Denies nausea and Denies vomiting Denies urinary hesitancy, Denies urinary incontinence and Denies urinary urgency Musc Denies abnormal gait, Denies atrophy, Denies deformity and Denies limited range of motion Neuro Denies abnormal gait, Denies behavioral changes, Denies confusion and Denies lack of coordination Psych Denies behavioral changes and Denies confusion Physical exam (Primary Care) Vital Signs: Last Vital Signs BP 136/86 08/01/23 13:00 BMI result Body Mass Index 26.3 Tobacco/Smoking Status: Tobacco use Status Tobacco use date assessed 08/01/23 08/01/23 13:03 Patient Tobacco Use Status Former Tobacco user 08/01/23 12:59 Tobacco use type Cigarette 08/01/23 12:59 e-Cigarette/Vaping Use Never Used 08/01/23 12:59 PHQ-9: PHQ-9 Score PHQ-9: Total score 0 08/01/23 12:59 Depression Screening Interpretation: Negative Thrive Assessment: Date of Thrive Assessment Date Thrive assessed 08/01/23 08/01/23 12:59 Currently or been in a relationship where the following occur: no concerns reported Const General: No confusion Orientation/consciousness: patient oriented x3 and No confusion HENMT Head: Yes normal to inspection, Yes normocephalic and Yes atraumatic Ears: external ears normal Eyes General: appearance normal, both eyes and all related structures Eyelids: Yes eyelids normal Conjunctivae: conjunctivae normal Neck Neck: Yes normal visual inspection and Yes supple Resp Effort & Inspection: normal respiratory effort Auscultation: clear to auscultation bilaterally Cardio Jugular venous distension: no JVD Rate: regular rate Rhythm: regular rhythm Heart sounds: S1 normal heart sound present and S2 normal heart sound present GI Inspection: Yes normal to inspection Palpation (GI): Soft to palpation and nontender Auscultation: normal bowel sounds Skin General skin exam: no rashes or lesions noted Neuro General: patient oriented x3, no focal motor deficits and No confusion Extrem General: Yes full ROM Psych Appearance: grossly normal Assessment and Plan Assessment & Plan (1) Physical exam: Code(s): Z00.00 - Encounter for general adult medical examination without abnormal findings Plan: Repeat in a year. (2) Mild recurrent major depression: Code(s): F33.0 - Major depressive disorder, recurrent, mild Plan: In remission. (3) Asthma-COPD overlap syndrome: Code(s): J44.9 - Chronic obstructive pulmonary disease, unspecified Plan: Use rescue inhaler as needed. Orders: Orders Comprehensive [place]. Panel Fast Today I10 - Essential (primary) hypertension Lipid Panel Today E78.5 - Hyperlipidemia, unspecified, I10 - Essential (primary) hypertension Coding Level of Care Code Est Pt Prev Care 40-64y(09768) Diagnoses Physical exam Z00.00 Mild recurrent major depression F33.0 Asthma-COPD overlap syndrome J44.9 Additional Codes MAXIMO-7 Assessment Billing - MAXIMO-7 Assessment Tool: MAXIMO-7 Assessment 74284 ([id number]) Time Spent (min) 32
[2023-08-01 13:00] VITALS: BP 136/86; PULSE 80; BMI 26.3
== END 2023-08-01 13:19 | disposition home or self-care (01) ==
PROVIDERS: Visit Provider Internal Medicine
DX: Z00.00 Encounter for general adult medical examination without abnormal findings (principal); F33.0 Major depressive disorder, recurrent, mild; J44.9 Chronic obstructive pulmonary disease, unspecified
CPT/HCPCS: 99396

== ENCOUNTER 2023-08-12 13:23 | Outpatient (REF) | payer OTHER, SELFPAY ==
[2023-08-12 14:58] LABS: Alanine Aminotransferase 66 U/L (0-40); Albumin Level 4.6 g/dL (3.5-5.0); Alkaline Phosphatase 60 U/L (39-117); Anion Gap 13 (12-20); Aspartate Amino Transferase 42 U/L (5-37); Blood Urea Nitrogen 9 mg/dL (9-16); Carbon Dioxide 25 mmol/L (22-29); Chloride 105 mmol/L (96-108); Cholesterol 180 mg/dL (<200); Estimated Glomerular Filt Rate > 60; Glucose Fasting 88 mg/dL (60-99); HDL Cholesterol 49 mg/dL (>40); LDL Cholesterol Calculated 110 mg/dL (<100); Potassium 3.6 mmol/L (3.3-5.1); Sodium 139 mmol/L (135-145); Triglycerides 108 mg/dL (<150)
== END 2023-08-12 13:24 | disposition home or self-care (01) ==
LOC: HO.LAB 13:23
PROVIDERS: PCP Internal Medicine; Visit Provider Internal Medicine
DX: I10 Essential (primary) hypertension (principal); E78.5 Hyperlipidemia, unspecified
CPT/HCPCS: 36415; 80053; 80061

== ENCOUNTER 2024-02-06 11:17 | Outpatient (AMB) | payer OTHER, SELFPAY ==
[2024-02-06 11:20] VITALS: BP 122/80; BMI 27.1
--- NOTE | 2024-02-06 11:20 | MHC.PC.OV ---
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 Accompanied by: Self / Same As Patient Allergies atorvastatin Adverse Reaction (Intermediate, Verified 02/06/24 11:30) elevated lilver enzymes lisinopril Adverse Reaction (Intermediate, Verified 02/06/24 11:30) cough Medication List - Last Reconciled 02/06/24 by Lyn Ware MD amlodipine 10 mg PO DAILY 90 days cholecalciferol (vitamin D3) 50 mcg PO DAILY 90 days fluticasone propionate 44 mcg/actuation (Flovent HFA) 1 puff inhalation BID 30 days rosuvastatin 10 mg PO DAILY 90 days Ventolin HFA 90 mcg/actuation (albuterol sulfate) 2 puffs inhalation Q6H PRN 30 days NS Tobacco use date assessed: 08/01/23 Dental Screening Dental Screen Date: 08/01/23 HPI HPI Comments History of Present Illness Details The patient is a 53-year-old male presenting with follow-up for hypertension and evaluation of persistent phlegm, and epigastric discomfort. The patient's blood pressure was noted to be excellent at 122/80 mmHg. Previously, the patient experienced an adverse reaction to lisinopril, which caused a cough, and the patient's liver enzymes were slightly elevated, potentially due to atorvastatin use. He also has mild recurrent major depression that has been stable with medications. The patient has asthma-COPD overlap syndrome and acknowledges not using Flovent daily as prescribed, only using it as needed. The patient reports persistent phlegm, particularly in the mornings, without a current cough or lisinopril intake. He describes consistent epigastric discomfort, especially noticeable during the workweek. No acid medication is currently used, though he's suggested stress might be exacerbating the issue. The patient has no recent gastrointestinal studies, but is open to evaluation. [facility] Medical History (Updated 02/06/24 @ 11:39 by Lyn Ware MD) Moderate persistent asthma Mild recurrent major depression Chronic cough Joint pain Elevated TSH Mixed hyperlipidemia Heat rash Transaminitis Dyslipidemia Essential hypertension Surgical History History of abdominal surgery History of herniorrhaphy Family History Father Prostate cancer Mother Diabetes mellitus Social History Housing: House Alcohol intake: current Alcohol intake frequency: a few times a week Alcohol type: beer Patient Tobacco Use Status: Former Tobacco user Tobacco use type: Cigarette e-Cigarette/Vaping Use: Never Used Second Hand Smoke Exposure: No service: No Current occupational status: employed Current occupational exposures/hazards: No Cognitive needs: No Hearing needs: No Vision needs: Yes Questionnaire Thrive Questionnaire Date Thrive assessed: 08/01/23 MAXIMO-7 AMB Questionnaire MAXIMO-7 Date MAXIMO - 7 assessed: 08/01/23 Source: Developed by Drs. Tray King, Callie Fofana, Chris Felix and colleagues, with an educational annette from [employer]. Review of Systems Const All systems reviewed & are unremarkable except as noted in HPI and below Card Denies chest pain at rest, Denies chest pain with activity, Denies edema, Denies irregular heart rhythm, Denies claudication, Denies dyspnea, Denies dyspnea on exertion, Denies orthopnea, Denies paroxysmal nocturnal dyspnea and Denies slow heart rate Resp Reports cough, Reports excessive phlegm production, Denies dyspnea and Denies dyspnea on exertion GI Reports abdominal pain, Denies change in bowel habits, Denies excessive flatus, Reports dyspepsia, Reports heartburn, Denies nausea and Denies vomiting Neuro Denies behavioral changes and Denies lack of coordination Psych Denies behavioral changes Physical exam (Primary Care) Vital Signs: Last Vital Signs BP 122/80 02/06/24 11:20 BMI result Body Mass Index 27.1 Tobacco/Smoking Status: Tobacco use Status Tobacco use date assessed 08/01/23 02/06/24 11:22 Patient Tobacco Use Status Former Tobacco user 02/06/24 11:22 Tobacco use type Cigarette 02/06/24 11:22 e-Cigarette/Vaping Use Never Used 02/06/24 11:22 Thrive Assessment: Date of Thrive Assessment Date Thrive assessed 08/01/23 02/06/24 11:22 Resp Effort & Inspection: normal respiratory effort Auscultation: clear to auscultation bilaterally Cardio Jugular venous distension: no JVD Rate: regular rate Rhythm: regular rhythm Heart sounds: S1 normal heart sound present and S2 normal heart sound present Extrem General: Yes full ROM Office Procedures Flu Questionnaire Does the patient have a severe egg allergy?: No Immunizations Fluarix Triv [id number] (PF) 45 mcg (15 mcg x 3)/0.5 mL IM syringe Performing Provider: Lyn Ware MD [place] Documented (not given) by: VIOLET Phelan on 02/06/24 11:30 Reason Not Given: Patient Refused Coding Level of Care Code Est Pt Level 4 (22961) Complex EM visit Add On G2211 Diagnoses Asthma-COPD overlap syndrome J44.9 Epigastric pain R10.13 Mild recurrent major depression F33.0 Essential hypertension I10 Time Spent (min) 22 Assessment & Plan Assessment & Plan (1) Asthma-COPD overlap syndrome: Code(s): J44.9 - Chronic obstructive pulmonary disease, unspecified Category: Medical (2) Epigastric pain: Code(s): R10.13 - Epigastric pain Category: Medical (3) Mild recurrent major depression: Code(s): F33.0 - Major depressive disorder, recurrent, mild Category: Medical (4) Essential hypertension: Code(s): I10 - Essential (primary) hypertension Category: Medical Plan The plan is to start using Flovent twice a day and not as needed. Will be referred to pulmonology. Will also be referred to Gastroenterology and I will order upper GI series for epigastric pain. Continue blood pressure medications and blood pressure goal is equal or less than 130/80. Start omeprazole 30 minutes before breakfast for this epigastric pain. Continue all his current meds. I discussed with the patient the importance of using Flovent daily for optimal management of his respiratory condition and referred him to a cisco consultant for further assessment. I reviewed the patient's elevated liver enzyme results and suggested potential reevaluation if deemed necessary. We discussed the correlation between stress and gastrointestinal symptoms and recommended a gastroenterology referral. I advised initiating omeprazole to manage his epigastric discomfort. The possibility of stress contributing to symptoms was also considered, with recommendation for further gastrointestinal evaluation. Orders: Orders Lipid Panel Today E78.5 - Hyperlipidemia, unspecified Comprehensive Met. Panel Today J44.9 - Chronic obstructive pulmonary disease, unspecified Influenza [id number] Immunization Today Z23 - Encounter for immunization [place] upper GI series Today R10.13 - Epigastric pain Referrals Pulmonology Referral J44.9 - Chronic obstructive pulmonary disease, unspecified Gastroenterology Referral R10.13 - Epigastric pain Medications: New omeprazole 20 mg PO DAILY 90 days 90 caps 1RF Refilled cholecalciferol (vitamin D3) 50 mcg PO DAILY 90 days 90 caps 1RF Patient Instructions: - Continue taking amlodipine 10 mg daily for hypertension management. - Use Flovent regularly as prescribed for asthma-COPD overlap syndrome. - Begin taking omeprazole 20 mg daily before breakfast. - Follow up with pulmonology and gastroenterology as referred. - Schedule liver function tests if advised. - Monitor and report any worsening symptoms or complications.
== END 2024-02-06 11:41 | disposition home or self-care (01) ==
PROVIDERS: PCP Internal Medicine; Visit Provider Internal Medicine
DX: J44.9 Chronic obstructive pulmonary disease, unspecified (principal); R10.13 Epigastric pain; F33.0 Major depressive disorder, recurrent, mild; I10 Essential (primary) hypertension; Z23 Encounter for immunization

== ENCOUNTER → 2024-02-06 11:17 | Outpatient (BNVA) | payer OTHER, SELFPAY | PROVIDERS: PCP Internal Medicine; Visit Provider Internal Medicine | DX: J44.9 Chronic obstructive pulmonary disease, unspecified (principal); R10.13 Epigastric pain; F33.0 Major depressive disorder, recurrent, mild; I10 Essential (primary) hypertension; Z28.21 Immunization not carried out because of patient refusal | CPT/HCPCS: 90471 ==

== ENCOUNTER 2024-05-01 08:28 | Outpatient (REF) | payer OTHER, SELFPAY ==
--- NOTE | ~2024-05-01 | FL_ITS ---
EXAMINATION: XR FLUOROSCOPY UPPER GI WITH AIR CLINICAL INFORMATION: Reflux. Epigastric pain. COMPARISON: None TECHNIQUE: Fluoroscopic air contrast upper GI examination was performed utilizing standard techniques with thin and thick barium and effervescent granules. Numerous spot images were obtained. FINDINGS: Dual and single contrast images of the esophagus demonstrate a normal caliber and contour. There is a granular appearance of the esophageal mucosa, suggestive of esophagitis. No evidence of stricture, mass, or ulcerations identified. Esophageal peristalsis was normal. No evidence of hiatus hernia identified. No significant gastroesophageal reflux was seen during the course of the examination and on reflux views. Dual contrast and single contrast images of the stomach demonstrated a normal contour. The areae gastricae have a thickened appearance, suggestive of gastritis. No masses or ulcerations are seen. Contrast freely passed into the gastric antrum and duodenal bulb without delay. Single and air-contrast images of the duodenal bulb demonstrate no abnormality. The duodenal sweep has a normal appearance, course, and mucosal fold appearance. The imaged proximal jejunum has a normal fold pattern and caliber. FLUOROSCOPY TIME: 3 minutes 16 seconds Number of Spot Images: 6 Number of Cine: 14 DOSE AREA PRODUCT: 1986 uGy-m2 (microgray-meter squared) FL/FL upper GI series IMPRESSION: 1. Granular appearance of the esophageal mucosa, suggestive of esophagitis. 2. Thickened appearance of the areae gastricae, suggestive of gastritis. This procedure was performed by Paul Lemos PA-C, and supervised by Dr. Barrett Electronically signed by: Raghu Barrett MD 05/07/2024 04:56 PM EDT
== END 2024-05-01 08:29 | disposition home or self-care (01) ==
LOC: HO.XRAY 08:28
PROVIDERS: PCP Internal Medicine; Visit Provider Internal Medicine
DX: R10.13 Epigastric pain (principal)
CPT/HCPCS: 74240

== ENCOUNTER → 2024-05-01 08:29 | Outpatient (BNV) | payer OTHER, SELFPAY | PROVIDERS: PCP Internal Medicine; Visit Provider Physician Assistant Surgical | DX: K21.9 Gastro-esophageal reflux disease without esophagitis (principal); R10.13 Epigastric pain | CPT/HCPCS: 74246 ==

== ENCOUNTER 2024-06-22 09:09 | Day surgery (SDC) | payer OTHER, SELFPAY ==
--- OUTSIDE RECORDS SUMMARY | 2024-06-05 15:22 | XMS_ITS | Patient Health Record ---
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 Role Phone Lyn Light Primary Care Provider Unavailab Asif Jasso Jr Unavailable Allergies No Known Allergies Reason For Referral No Information Medications Medication SIG (Take, Route, Frequency, Duration) Notes Start Date End Date Status amLODIPine Besylate 10 MG 1 tablet Orall y Once a day Active Rosuvastatin Calcium 10 MG 1 tablet Oral ly Once a day Active Cholecalciferol 25 MCG (1000 UT) 1 capsule Orally Once a day Active Pantoprazole Sodium 40 MG 1 tablet 1/2 t o 1 hour before morning meal Orally Once a day for 30 days 05/28/2024 Active Immunizations Vaccine Route Administration Date Status Comme nts Influenza Unknown 05/28/2024 Refused Social History Tobacco Use: Social History Observation Description Date Details (start date - stop date) Former Smoker NA - NA Tobacco Control (Standard) Question Answer Notes Tobacco use: Former smoker AUDIT-C (Standard) Question Answer Notes Did you have a drink contain ing alcohol in the past year? Yes How often did you have a dri nk containing alcohol in the past year? Daily or almost daily (4 points) How many drinks did you have on a typical day when you were drinking in the past year? 3 or 4 drinks (1 point) How often did you have six o r more drinks on one occasion in the past year? Never (0 point) Points 5 Interpretation Positive Problems Problem Type SNOMED Code ICD Code Onset Dates Problem Status W/U Status Risk Notes Problem 764738313 Colon cancer screening (Z12.11) Active confirmed Problem 541470109 Abnormal UGI series (R93.3) Active confirmed Problem [id number] Chronic GERD (K21.9) Active confirmed Vital Signs Temperature 98.4 degrees Fahrenheit 05/28/2024 Blood pressure diastolic 01 mm Hg 05/28/2024 Height 68 in 05/28/2024 Blood pressure systolic 001 mm Hg 05/28/2024 Weight 170.4 lbs 05/28/2024 BMI 25.91 kg/m2 05/28/2024 Encounters Encounter Location Date Provider Diagnosis [facility] [address] [place] [address] 05/28/2024 Asif Harley Chavez Chronic GERD K21.9 ; Abnormal UGI series R93.3 and Colon cancer screening Z12.11 Assessments Encounter Date Diagnosis (ICD Code) Assessment Notes Treatment Notes Treatment Clinical Notes Section Notes 05/28/2024 Abnormal UGI series (ICD-10 - R93.3) We discussed his symptoms today. We discussed gastroesophageal reflux disease, esophagitis, and gastritis. We recommend that he discontinue omeprazole due to side effects, and begin pantoprazole 40 mg daily. Prescription sent. He will undergo upper endoscopy for further evaluation of his symptoms and the abnormal findings on his upper GI series. We discussed risks and benefits of the procedure today. He understands these and agrees to proceed. He is up-to-date on colorectal cancer screening, and is due for follow-up colonoscopy in 4 years. 05/28/2024 Chronic GERD (ICD-10 - K21.9) We discussed his symptoms today. We discussed gastroesophageal reflux disease, esophagitis, and gastritis. We recommend that he discontinue omeprazole due to side effects, and begin pantoprazole 40 mg daily. Prescription sent. He will undergo upper endoscopy for further evaluation of his symptoms and the abnormal findings on his upper GI series. We discussed risks and benefits of the procedure today. He understands these and agrees to proceed. He is up-to-date on colorectal cancer screening, and is due for follow-up colonoscopy in 4 years. 05/28/2024 Colon cancer screening (ICD-10 - Z12.11) Endoscopy material was printed We discussed his symptoms today. We discussed gastroesophageal reflux disease, esophagitis, and gastritis. We recommend that he discontinue omeprazole due to side effects, and begin pantoprazole 40 mg daily. Prescription sent. He will undergo upper endoscopy for further evaluation of his symptoms and the abnormal findings on his upper GI series. We discussed risks and benefits of the procedure today. He understands these and agrees to proceed. He is up-to-date on colorectal cancer screening, and is due for follow-up colonoscopy in 4 years. Plan Of Treatment Future Test Test Name Order Date UPPER GI ENDOSCOPY 05/28/2024 Next Appt Details Provider Name:Asif castle Jr, 06/22/2024 10:40:00 AM, [address] [place] [address], [id number], Insurance Providers Payer Name Payer Address Payer Phone Subscriber Number Group Number Insured Name Patient Relationship to Insured Coverage Start Date Coverage End Date [employer] [place] [address] [address] [place] [address] [id number] PRACHI GUO Self - patient is the insured Medical (General) History Medical History History ICD Code high blood pressure high cholesterol Colonoscopy 09/15, normal, 10-year follow -up Peptic ulcer disease, repair of perforat ion 1999 Surgical History Surgery Date(Month/Year) Right inguinal herniorrhaphy Repair of perforated peptic ulcer 1999
--- OUTSIDE RECORDS SUMMARY | 2024-06-05 15:22 | XMS_ITS ---
Author Organization [facility] Address [address] [place] [phone] Care Team Providers Care Organic Extractions Technician Name Role Phone Lyn Light Primary Care Provider Unavailab Asif Jasso Jr Unavailable Allergies No Known Allergies REASON FOR VISIT Patient presents today for a colon screening Medications Medication SIG (Take, Route, Frequency, Duration) [...] Problem Status W/U Status Risk Notes Problem 819563328 Chronic GERD (K21.9) Active confirmed Problem 890969334 Abnormal UGI series (R93.3) Active confirmed Problem [id number] Colon cancer screening (Z12.11) Active confirmed Vital Signs Temperature 98.4 degrees Fahrenheit 05/29/19 25 Blood pressure systolic 001 mm Hg 05/29/19 25 Blood pressure diastolic 01 mm Hg 025 Height 68 in 05/28/2024 Weight 170.4 lbs 05/28/2024 BMI 25.91 kg/m2 05/28/2024 Encounters Encounter Location Date Provider Diagnosis [facility] [address] [place] [address] 05/28/2024 Asif Souza Jr Chronic GERD K21.9 ; Abnormal UGI series R93.3 and Colon cancer screening Z12.11 Assessments Encounter Date Diagnosis (ICD Code) Assessment Notes Treatment Notes Treatment Clinical Notes Section Notes 05/28/2024 Chronic GERD (ICD-10 - K21.9) We [...] for follow-up colonoscopy in 4 years. 05/28/2024 Abnormal UGI series (ICD-10 - R93.3) [...] colonoscopy in 4 years. Plan Of Treatment Medication Medication Name Sig Start Date Stop Date Notes Pantoprazole Sodium 40 MG 1 tablet 1/2 t o 1 hour before morning meal Orally Once a day for 30 days 05/28/2024 Treatment Notes Assessment Notes Colon cancer screening Endoscopy materia l was printed Future Test Test Name Order Date UPPER GI ENDOSCOPY 05/28/2024 Next Appt Details Follow Up: 1 Year, Reason: Provider Name:Asif castle , 06/22/2024 10:40:00 AM, [address] [place] [address], [phone], Progress Notes * CADENCE GUOOB:1970 ([age] yo M)Acc No.[id number]:05/28/2024 Progress Notes Patient:?PRACHI GUO Provider:?Asif Souza MD :1970???Age:54 Y???Sex:Male Garfield e:05/28/2024 Address:[address] [place] [id number] Pcp:Lyn Ware Subjective: * Chief Complaints: * ???1. Patient presents today for a colon screening. * ROS:?General/Constitutional:?Change in appetite?denies.?Fatigue?denies.?ENT:?Patient denies?difficulty swallowing.?Respiratory:?Patient denies?shortness of breath.?Cardiovascular:?Patient denies?chest pain.?Gastrointestinal:?Comments?See HPI for details.?Genitourinary:?Difficulty urinating?denies.?Incontinence?denies.?Musculoskeletal:?Patient denies?muscle aches.?Skin:?Patient denies?pruritis.?Neurologic:?Patient denies?low back pain.?Psychiatric:?Patient denies?mental or physical abuse.? * Medical History:?High blood pressure, High cholesterol, Colonoscopy 09/15, normal, 10-year follow-up, Peptic ulcer disease, repair of perforation 1999. * Surgical History:?Repair of perforated peptic ulcer 1999 , Right inguinal herniorrhaphy . * Family History:?Father: daphnie shook, diagnosed with HTN (hypertension).?Mother: alive.? No family history of liver cancer or colon cancer. * Social History:?Tobacco Use:?Tobacco Control (Standard)?Tobacco use:?Former smoker.?Miscellaneous:?Marital status: . Occupation: works full-time. ???Drug/Alcohol:?AUDIT-C (Standard)?Did you have a drink containing alcohol in the past year??Yes,?How often did you have a drink containing alcohol in the past year??Daily or almost daily (4 points),?How many drinks did you have on a typical day when you were drinking in the past year??3 or 4 drinks (1 point),?How often did you have six or more drinks on one occasion in the past year??Never (0 point),?Points?5,?Interpretation?Positive.? * Medications:?Taking amLODIPi ne Besylate 10 MG Tablet 1 tablet Orally Once a day , Taking Cholecalciferol 25 MCG (1000 UT) Capsule 1 capsule Orally Once a day , Taking Rosuvastatin Calcium 10 MG Tablet 1 tablet Orally Once a day , Discontinued Atorvastatin Calcium 20 MG Tablet 1 tablet Orally Once a day * Allergies:?N.K.D.A. Objective: * Vitals:?Wt:170.4lbs, Ht: 68 in, BMI:25.91Index, BP:001/01mm Hg, Temp:98.4, Ht- cm: 172.72, Wt-k.29. * Examination: ???General Examination: ?GENERAL APPEARANCE:?in no acute distress.?HEAD:?normocephalic.?EYES:?sclera non-icteric.?ORAL CAVITY:?mucosa moist.?NECK/THYROID:?no lymphadenopathy.?SKIN:?anicteric.?HEART:?S1, S2 normal, no murmurs.?LUNGS:?clear to auscultation bilaterally.?CHEST:?normal shape and expansion.?ABDOMEN:?soft, nontender, nondistended, bowel sounds present, no organomegaly .?EXTREMITIES:?no clubbing, cyanosis, or edema.?PSYCH:?cognitive function intact.? Assessment: * Assessment: 1.?Chronic GERD - K21.9 (Snehal corcoran)???2.?Abnormal UGI series - R93.3???3.?Colon cancer screening - Z12.11??? We discussed his symptoms to day. We discussed gastroesophageal reflux disease, esophagitis, and [...] due for follow-up colonoscopy in 4 years. Plan: * Treatment: 2.?Abnormal UGI series?Procedure: UPPER GI ENDOSCOPY (Ordered for 05/28/2024)* sched for 06/22/24 at 10:40 a [facility] 3.?Colon cancer screening? Notes: Endoscopy material was printed?? * Immunizations:? Influenza (Not administered - Refused: Patient decision) * Procedure Codes:?3017F COLOR ECTAL CA SCREEN DOC REV, G9903 Pt scrn tbco id as non user, G9744 PATIENT NOT ELIG D/T ACTIVE DX HTN * Preventive Medicine:? ??Counseling:?Care goal follow-up plan:?Above Normal BMI Follow-up?Dietary management education, guidance, and counseling,?BMI management provided?Yes.? * Follow Up:?1 Year * * Sign off status: Completed true * Provider:?Asif Souza MD Date:?0 05/28/2024 Generated for Frankie leo/Dandy/eTransmitting on:?06/05/2024 03:22 PM EDT History and Physical Notes * Examination Category Sub-Category Detail Notes Category Not es General Examination GENERAL APPEARANCE: in no acute di stress HEAD: normocephalic EYES: sclera non-icteric NECK/THYROID: no lymphadenopathy HEART: S1, S2 normal, no mu rmurs CHEST: normal shape and exp ansion LUNGS: clear to auscultatio n bilaterally ABDOMEN: soft, nontender, non distended, bowel sounds present, no organomegaly SKIN: anicteric EXTREMITIES: no clubbing, cyanosi s, or edema PSYCH: cognitive function i ntact ORAL CAVITY: mucosa moist
[2024-06-20 14:19] VITALS: BMI 25.9
--- NOTE | 2024-06-21 08:35 | HO.ANESPROP2 ---
Documented by User: Ada Loera NP 06/21/24 08:35 HPI - Anesthesia Eval Consult details Narrative: 54yo M for Upper Endoscopy PMFSH Active Problems Active Problems: All Active Problems Esophagitis (Acute) Epigastric pain (Acute) Skin lesion (Acute) Physical exam (Acute) Acute bronchitis (Acute) Environmental allergies (Acute) Asthma-COPD overlap syndrome (Acute) Reactive airway disease (Acute) Upper respiratory infection (Acute) Congestion of paranasal sinus (Acute) Bronchitis (Acute) Constipation (Acute) Cough (Acute) Moderate persistent asthma (Acute) Mild recurrent major depression (Acute) Chronic cough (Acute) Joint pain (Acute) Elevated TSH (Acute) Mixed hyperlipidemia (Acute) Heat rash (Acute) Transaminitis (Acute) Dyslipidemia (Acute) Essential hypertension (Acute) Past Medical History Medical History Peptic ulcer disease Moderate persistent asthma Mild recurrent major depression Chronic cough Joint pain Elevated TSH Mixed hyperlipidemia Heat rash Transaminitis Dyslipidemia Essential hypertension Family History Family History Father Prostate cancer Mother Diabetes mellitus Surgical History Surgical History H/O colonoscopy History of abdominal surgery History of herniorrhaphy Social History Social History Household Members: Spouse Housing: House Alcohol intake: current Alcohol intake frequency: a few times a week Alcohol type: beer Patient Tobacco Use Status: Former Tobacco user Tobacco use type: Cigarette e-Cigarette/Vaping Use: Never Used Second Hand Smoke Exposure: No Advance Directives: No Advance Directives Information Provided: Yes service: No Current occupational status: employed Current occupational exposures/hazards: No Cognitive needs: No Hearing needs: No Vision needs: Yes Meds Allergies Allergy/AdvReac Type Severity Reaction Status Date / Time atorvastatin AdvReac Intermediate elevated Verified 02/06/24 11:30 lilver enzymes lisinopril AdvReac Intermediate cough Verified 02/06/24 11:30 Exam Height,Weight and Vital Signs: Height 5 ft 8 in Weight 77.292 kg Assessment and Plan Assessment Anesthesia Assessment: Chart Reviewed Documented by User: Lucía Osei MD 06/22/24 10:50 PMFSH Past Medical History Medical History Peptic ulcer disease Moderate persistent asthma Mild recurrent major depression Chronic cough Joint pain Elevated TSH Mixed hyperlipidemia Heat rash Transaminitis Dyslipidemia Essential hypertension Family History Family History Father Prostate cancer Mother Diabetes mellitus Family history of problems with anesthesia: No Surgical History Surgical History H/O colonoscopy History of abdominal surgery History of herniorrhaphy History of Problems with Anesthesia: No Social History Social History Household Members: Spouse Housing: House Alcohol intake: current Alcohol intake frequency: a few times a week Alcohol type: beer Patient Tobacco Use Status: Former Tobacco user Tobacco use type: Cigarette e-Cigarette/Vaping Use: Never Used Second Hand Smoke Exposure: No Advance Directives: No Advance Directives Information Provided: Yes service: No Current occupational status: employed Current occupational exposures/hazards: No Cognitive needs: No Hearing needs: No Vision needs: Yes Meds Allergies Allergy/AdvReac Type Severity Reaction Status Date / Time atorvastatin AdvReac Intermediate elevated Verified 02/06/24 11:30 lilver enzymes lisinopril AdvReac Intermediate cough Verified 02/06/24 11:30 Exam Height,Weight and Vital Signs: Height 5 ft 8 in Weight 77.292 kg Vital Signs Temp Pulse Resp BP Pulse Ox O2 Del Method 06/22/24 09:44 97.3 F 77 18 140/88 H 97 Room Air Airway Mallampati Class: III TM Dist: >3cm Partial: Upper Loose/Missing/Broken Teeth: Yes (Denies broken or loose teeth.Missing some teeth) Heart: RRR Lungs: CTAB Assessment and Plan Assessment Anesthesia Assessment: Anesthesia Plan Discussed and Chart Reviewed Final Anesthetic Review Family History of Problems with Anesthesia: No History of Problems with Anesthesia: No NPO: Yes ASA Class: II Final Preanesthetic Review: No Changes in Pt Med Stat, Meds/Allgs Chart Reviewed, Consent Obtained/Reviewed and Anes Risks/Benef Reviewed Patient Risk: Intermediate Procedure Risk: Low Assessment/Block/Sedation in SS: Assess/Block/Sedation-SS Anesthetic Plan Anesthetic Plan: TIVA Disposition: Standard PACU
[2024-06-22 09:44] VITALS: BP 140/88; PULSE 77; RESP 18; TEMP 36.3; O2SAT 97
[2024-06-22] MEDS: Lactated Ringers 1,000 ML 100 ML IVCONT (10:01)
--- NOTE | 2024-06-22 10:22 | P.HPSUR_ITS ---
Pre-Procedural Eval Section A - 24 Hr Update-Section A only Date of Service: 06/22/24 Section B - Complete if H&P > 30 days Chief Complaint: GERD, Details of Present Illness: see H&P no changes Relevant Family History (Specify if Yes): No Relevant Social History: None Present Medications: see Short Stay Collaborative assessment Medical History: No relevant PMH History of Previous Operations: No relevant previous surgery Allergies: Allergies Allergy/AdvReac Type Severity Reaction Status Date / Time atorvastatin AdvReac Intermediate elevated Verified 02/06/24 11:30 lilver enzymes lisinopril AdvReac Intermediate cough Verified 02/06/24 11:30 Review of Systems Sugical H&P ROS: Negative: Constitution, Cardiovascular, Respiratory, Neurological, Psychiatric, Hem-Onc, Allergic/Immunologic, Gastrointestinal, Genitourinary, Musculoskeletal, Integumentary, Endocrine and Eyes/Ears/Nose/Throat Exam Surgical H&P Exam: Normal: HEENT, Normal: Heart, Normal: Lungs, Normal: Ext remities, Normal: Abdomen, Normal: Skin and Normal: Neurological Plan Diagnosis/Plan: Unchanged I have reviewed the history and physical and performed a pertinent physical examination on my patient. No changes have occurred unless specified. Time Spent With Patient Time: Total time managing care of this patient today ____ minutes.
[2024-06-22 10:57] VITALS: BP 96/58; PULSE 87; RESP 20; TEMP 36.5; O2SAT 94
[2024-06-22 11:12] VITALS: BP 112/79; PULSE 93; RESP 20; O2SAT 95
[2024-06-22 11:24] VITALS: BP 115/76; PULSE 81; RESP 16; TEMP 36.4; O2SAT 95
--- NOTE | 2024-06-22 11:24 | OP_ITS ---
DATE OF SERVICE: 06/22/2024 SURGEON: Asif Souza MD INDICATIONS: Gastroesophageal reflux disease. PREOPERATIVE DIAGNOSIS: POSTOPERATIVE DIAGNOSIS: PROCEDURE PERFORMED: Upper endoscopy with biopsy. ESTIMATED BLOOD LOSS: COMPLICATIONS: ANESTHESIA: Monitored anesthesia care. ASSISTANTS: SPECIMENS: DESCRIPTION OF PROCEDURE: A history and physical were performed. The risks and benefits of the procedure were explained to the patient. Informed consent was obtained. The patient was placed in the left lateral decubitus position. The Olympus video gastroscope was introduced into the esophagus, stomach, and duodenum. Examination was performed. The scope was removed. He tolerated the procedure well and was returned to recovery area in stable condition. FINDINGS: 1. Esophagus: The esophagus was normal. There was no esophagitis. Biopsies were obtained from the EG junction. 2. Stomach: The stomach showed several benign-appearing polyps, consistent with fundic gland polyps in the body and fundus. Two of these were biopsied. All measured less than 10 mm. Antral biopsies were obtained to rule out H pylori. 3. Duodenum: The bulb and second portion were normal. IMPRESSION: Gastroesophageal reflux disease, gastric polyps. RECOMMENDATION: Follow up the biopsy results. MD NICOLETTE Winn/MARIE / [id number]
== END 2024-06-22 11:47 | disposition home or self-care (01) ==
PROVIDERS: PCP Internal Medicine; Visit Provider Internal Medicine Gastroenterology
PROC: 0DJ08ZZ Inspection of Upper Intestinal Tract, Via Natural or Artificial Opening Endoscopic (ICD-10-PCS; CPT 43235; principal; 2024-06-22 10:40)
DX: K21.9 Gastro-esophageal reflux disease without esophagitis (principal); K31.7 Polyp of stomach and duodenum; I10 Essential (primary) hypertension; E78.5 Hyperlipidemia, unspecified; Z79.02 Long term (current) use of antithrombotics/antiplatelets; Z79.899 Other long term (current) drug therapy
CPT/HCPCS: 43239; 88305; 88313; 88341; 88342; J1100; J1596; J2003; J2704

== ENCOUNTER 2024-08-06 13:01 | Outpatient (AMB) | payer OTHER, SELFPAY ==
[2024-08-06 13:11] VITALS: BP 112/74; BMI 25.8
--- NOTE | 2024-08-06 13:11 | MHC.PC.OV ---
Vital Signs 08/06/24 13:11 Height 5 ft 8 in Weight 170 lb BMI 25.8 BP 112/74 Blood Pressure Location Lt brachial Position Sitting Intake Visit Reasons: Annual Exam Intake Note: Patient here for a physical exam Lab Tester Required: No Accompanied by: Self / Same As Patient Allergies atorvastatin Adverse Reaction (Intermediate, Verified 08/06/24 13:26) elevated lilver enzymes lisinopril Adverse Reaction (Intermediate, Verified 08/06/24 13:26) cough Medication List - Last Reconciled 08/06/24 by Lyn Ware MD amlodipine 10 mg PO DAILY 90 days budesonide-formoterol 80-4.5 mcg/actuation inhalation cholecalciferol (vitamin D3) 50 mcg PO DAILY 90 days fluticasone propionate 44 mcg/actuation 1 puff inhalation BID 30 days pantoprazole 40 mg PO DAILY rosuvastatin 10 mg PO DAILY 90 days Tobacco use date assessed: 08/06/24 Dental Screening Dental Screen Date: 08/06/24 Did you have a dental visit in the last 12 months?: No Did you have a dental problem in the last 6 months where you did not have access to dental care?: No Was dental information given to patient?: Patient has dentist HPI HPI Comments History of Present Illness Details The patient is a 54-year-old male presenting for his physical exam. He underwent a normal colonoscopy in 2018 and an endoscopy in May which revealed mild chronic inactive inflammation, with no Helicobacter pylori detected but identified a gastric polyp. He has a history of esophagitis, gastritis, and repaired inguinal hernia. In 2009, he required surgical intervention for a perforated gastric ulcer. His chronic respiratory condition, asthma-COPD overlap syndrome, is managed with twice daily inhalation therapy. His medication regimen also includes rosuvastatin for hyperlipidemia, amlodipine for hypertension, and pantoprazole for gastric acidity. He reports an adverse reaction to atorvastatin and lisinopril in the past. He no longer consumes alcohol but did previously drink beer a couple of times a week. - Colonoscopy performed in 2018, next due in 2028 - Endoscopy in May of this year revealing mild chronic inactive gastric inflammation, negative for Helicobacter pylori, identification of gastric polyp - Recommended Tdap vaccination was discussed [facility] Medical History Peptic ulcer disease Moderate persistent asthma Mild recurrent major depression Chronic cough Joint pain Elevated TSH Mixed hyperlipidemia Heat rash Transaminitis Dyslipidemia Essential hypertension Surgical History (Updated 08/06/24 @ 13:33 by Lyn Ware MD) H/O colonoscopy History of abdominal surgery History of herniorrhaphy Family History Father Prostate cancer Mother Diabetes mellitus Social History Household Members: Spouse Housing: House Alcohol intake: current Alcohol intake frequency: a few times a week Alcohol type: beer Patient Tobacco Use Status: Former Tobacco user Tobacco use type: Cigarette e-Cigarette/Vaping Use: Never Used Second Hand Smoke Exposure: No service: No Current occupational status: employed Current occupational exposures/hazards: No Cognitive needs: No Hearing needs: No Vision needs: Yes Questionnaire PHQ-9 Over the last 2 weeks, how often have you been bothered by any of the following problems? 1. Little interest or pleasure in doing things: not at all 2. Feeling down, depressed, or hopeless: not at all 3. Trouble falling or staying asleep, or sleeping too much: nearly every day 4. Feeling tired or having little energy: several days 5. Poor appetite or overeating: not at all 6. Feeling bad about yourself - or that you are a failure or have let yourself or your family down: not at all 7. Trouble concentrating on things, such as reading the newspaper or watching television: not at all 8. Moving or speaking so slowly that other people could have noticed. Or the opposite - being so fidgety or restless that you have been moving around a lot more than usual: not at all 9. Thoughts that you would be better off or of hurting yourself in some way: not at all Total score: 4 Depression Screening Interpretation: Positive Depression Screening Follow-up: Existing condition and Follow-up Visit Requested Depression Screening Done: Yes 89977 - PHQ-9 Billing: Yes Source: Developed by Drs. Tray King, Callie Fofana, Chris Felix and colleagues, with an educational annette from [employer]. Thrive Questionnaire Date Thrive assessed: 08/06/24 I am a: Patient What is your living situation today?: I choose not to answer this question Within the past 12 months, did the food you bought not last and you didn't have the money to get more?: I choose not to answer this question Within the past 12 months, did you worry whether your food would run out before you got money to buy more?: I choose not to answer this question Do you have trouble paying for medicines?: No Do you have trouble getting transportation to medical appointments?: No Do you have trouble paying your heating and electricity bill?: I choose not to answer this question Do you have trouble taking care of your child, family member or friend?: No Do you have trouble with day-to-day activities such as bathing, preparing meals, shopping, managing finances, etc.?: No Are you currently unemployed and looking for a job?: No Are you interested in more education?: No Please select the resources that you would like help with: None Currently or been in a relationship where the following occur: I choose not to answer THRIVE Score: 0 AUDIT C Alcohol Use Questionnaire (AUDIT-C) 1. How often do you have a drink containing alcohol?: 2-4 times a month 2. How many drinks containing alcohol do you have on a typical day when you are drinking?: 5 or 6 3. How often do you have six or more drinks on one occasion?: Never Total Score: 4 MAXIMO-7 AMB Questionnaire MAXIMO-7 Date MAXIMO - 7 assessed: 08/06/24 Feeling nervous, anxious, or on edge: 0 = Not at all Not being able to stop or control worryin = Not at all Worrying too much about different things: 0 = Not at all Trouble relaxin = Not at all Being so restless that it is hard to sit still: 0 = Not at all Becoming easily annoyed or irritable: 0 = Not at all Feeling afraid as if something awful might happen: 0 = Not at all Total MAXIMO-7 score (0-4 normal; 5-9 mild; 10-14 moderate; 15-21 severe): 0 Source: Developed by Drs. Tray King, Callie Fofana, Chris Felix and colleagues, with an educational annette from [employer]. MAXIMO-7 Assessment Billing MAXIMO-7 Assessment Tool: MAXIMO-7 Assessment 82896 Review of Systems Const All systems reviewed & are unremarkable except as noted in HPI and below Card Denies chest pain at rest, Denies chest pain with activity, Denies edema, Denies irregular heart rhythm, Denies claudication, Denies dyspnea, Denies dyspnea on exertion, Denies orthopnea, Denies paroxysmal nocturnal dyspnea and Denies slow heart rate Resp Denies cough, Denies dyspnea and Denies dyspnea on exertion GI Denies abdominal pain, Denies change in bowel habits, Denies excessive flatus, Denies nausea and Denies vomiting Denies urinary hesitancy, Denies urinary incontinence and Denies urinary urgency Neuro Denies lack of coordination Physical exam (Primary Care) Vital Signs: Last Vital Signs BP 112/74 08/06/24 13:11 BMI result Body Mass Index 25.8 Tobacco/Smoking Status: Tobacco use Status Tobacco use date assessed 08/06/24 08/06/24 13:17 Patient Tobacco Use Status Former Tobacco user 08/06/24 13:17 Tobacco use type Cigarette 08/06/24 13:17 e-Cigarette/Vaping Use Never Used 08/06/24 13:17 PHQ-9: PHQ-9 Score PHQ-9: Total score 4 08/06/24 13:39 Depression Screening Interpretation: Positive Depression Screening Follow-up: Existing condition and Follow-up Visit Requested Thrive Assessment: Date of Thrive Assessment Date Thrive assessed 08/06/24 08/06/24 13:17 Currently or been in a relationship where the following occur: I choose not to answer HENHI Head: Yes normal to inspection, Yes normocephalic and Yes atraumatic Ears: external ears normal Eyes General: appearance normal, both eyes and all related structures Eyelids: Yes eyelids normal Conjunctivae: conjunctivae normal Neck Neck: Yes normal visual inspection and Yes supple Resp Effort & Inspection: normal respiratory effort Auscultation: clear to auscultation bilaterally Cardio Jugular venous distension: no JVD Rate: regular rate Rhythm: regular rhythm Heart sounds: S1 normal heart sound present and S2 normal heart sound present GI Inspection: Yes normal to inspection Palpation (GI): Soft to palpation and nontender Auscultation: normal bowel sounds Skin General skin exam: no rashes or lesions noted Neuro General: no focal motor deficits Extrem General: Yes full ROM Psych Appearance: grossly normal Immunizations Boostrix Tdap 2.5 Lf unit-8 mcg-5 Lf/0.5 mL intramuscular syringe Performing Provider: yLn Ware MD Performing Location: [facility] Administered by: VIOLET Phelan on 08/06/24 13:39 Dose Route Admin Location Dispensed Lot Number Expiration Date NDC Impression Printer 0.5 mL IM Left Deltoid 0.5 mL [id number] 10/27/26 33908-842-41 [employer] Risk [facility] VIS Given Date VIS Provided VIS Publication Date 08/06/24 Single Vaccine 24 Eligibility Eligibility Date Funding Source Not [facility] Eligible 08/06/24 Private Coding Level of Care Code Est Pt Prev Care 40-64y(85756) Diagnoses Physical exam Z00.00 Asthma-COPD overlap syndrome J44.9 Mild recurrent major depression F33.0 Additional Codes MAXIMO-7 Assessment Billing - MAXIMO-7 Assessment Tool: MAXIMO-7 Assessment 08718 ([id number]) PHQ-9 - 88284 - PHQ-9 Billing: Yes ([id number]) Time Spent (min) 31 Assessment & Plan Assessment & Plan (1) Physical exam: Code(s): Z00.00 - Encounter for general adult medical examination without abnormal findings Category: Medical (2) Asthma-COPD overlap syndrome: Code(s): J44.9 - Chronic obstructive pulmonary disease, unspecified Category: Medical (3) Mild recurrent major depression: Code(s): F33.0 - Major depressive disorder, recurrent, mild Category: Medical Plan I continue to manage the patient's asthma-COPD overlap syndrome with current inhalation therapy, ensuring effective respiratory symptom control. His gastric acidity will be managed with ongoing pantoprazole use, while hyperlipidemia is controlled with rosuvastatin, given his history of intolerance to atorvastatin. Anticipating further health maintenance measures, I discussed the Tdap vaccination. Regular monitoring of his current medication regimen to manage his hypertension and hyperlipidemia is planned. Patient was informed and verbally consented to the use of an ambient scribe for clinic note documentation during this visit. Today, I discussed the management of the patient's chronic conditions, including the necessity of the current inhalation therapy for asthma-COPD overlap syndrome and the ongoing use of pantoprazole to address gastric acidity. The benefits of a Tdap vaccination were highlighted due to less clarity on vaccination history. Dialogue about the adverse reactions to atorvastatin and lisinopril informed the rationale for continuing with rosuvastatin and amlodipine. Follow-up will focus on monitoring and possibly adjusting his treatment plan for optimal management of his conditions. The follow-up schedule concerning his next colonoscopy was confirmed for 2028. Orders: Orders Lipid Panel Today E78.5 - Hyperlipidemia, unspecified TDaP Immunization Today Z23 - Encounter for immunization Comprehensive [place]. Panel Fast Today J44.9 - Chronic obstructive pulmonary disease, unspecified Patient Instructions: - Continue to take your inhaler twice daily for asthma-COPD management. - Keep taking rosuvastatin as prescribed for cholesterol management. - Use pantoprazole for gastric acidity control. - Consider receiving a Tdap vaccination; think about it and decide soon. - Return to the clinic as scheduled for regular follow-ups. - Seek medical attention if symptoms worsen or new symptoms occur.
--- OUTSIDE RECORDS SUMMARY | 2024-08-06 14:44 | XMS_ITS ---
Author Organization [facility] Address [address] [place] [id number] Care Team Providers Care Dehydrator Tender Name Role Phone Lyn Light Primary Care Provider Unavailab Asif Jasso Jr REASON FOR VISIT GERD Encounters Encounter Location Date Provider Diagnosis [facility] [address] [place] [phone] 06/22/2024 Asif Souza Jr Gastro-esophageal reflux disease without esophagitis K21.9 and Gastric polyps K31.7 Assessments Encounter Date Diagnosis (ICD Code) Assessment Notes Treatment Notes Treatment Clinical Notes Section Notes 06/22/2024 Gastro-esophagea l reflux disease without esophagitis (ICD-10 - K21.9) 06/22/2024 Gastric polyps (ICD-10 - K31.7) Plan Of Treatment Next Appt Details Provider Name:Asif castle Jr, 07/01/2025 09:20:00 AM, [address] [place] [address], [address] [facility], [place], [address], Progress Notes * CADENCE GUOOB:1970 ([age] yo M)Acc No.[id number]:06/22/2024 EGD/MAC Patient:?PRACHI GUO Provider:?Asif Souza MD :1970???Age:54 Y???Sex:Male Garfield e:06/22/2024 Address:[address] [place] [address], [id number] Pcp:Lyn Ware Subjective: * Chief Complaints: * ???1. GERD. * Medical History:? Objective: * Vitals:? Assessment: * Assessment: 1.?Gastro-esophageal reflux disease without esophagitis - K21.9 (Primary)???2.?Gastric polyps - K31.7??? Plan: * Treatment: * Procedure Codes:?48127 UPPER GI ENDOSCOPY, BIOPSY * * The named appointment provid er may or may not be the originator of this progress note, and it is not deemed complete until electronically signed by the appointment provider. Sign off status: Pending * Provider:?Asif Souza MD Date:?0 06/22/2024 Generated for Frankie leo/Dandy/Dedeitting on:?08/06/2024 02:43 PM EDT
== END 2024-08-06 13:50 | disposition home or self-care (01) ==
LOC: HO.HMCH 13:02
PROVIDERS: PCP Internal Medicine; Visit Provider Internal Medicine
DX: Z00.00 Encounter for general adult medical examination without abnormal findings (principal); J44.9 Chronic obstructive pulmonary disease, unspecified; F33.0 Major depressive disorder, recurrent, mild; Z23 Encounter for immunization

== ENCOUNTER → 2024-08-06 13:01 | Outpatient (BNVA) | payer OTHER, SELFPAY | PROVIDERS: PCP Internal Medicine; Visit Provider Internal Medicine | DX: Z00.00 Encounter for general adult medical examination without abnormal findings (principal); Z23 Encounter for immunization; J44.9 Chronic obstructive pulmonary disease, unspecified; F33.0 Major depressive disorder, recurrent, mild; E78.5 Hyperlipidemia, unspecified; Z79.899 Other long term (current) drug therapy; Z13.31 Encounter for screening for depression; Z13.30 Encounter for screening examination for mental health and behavioral disorders, unspecified | CPT/HCPCS: 90471; 90715; 96127 ==

== ENCOUNTER 2024-12-12 10:52 | Outpatient (AMB) | payer OTHER, SELFPAY ==
--- OUTSIDE RECORDS SUMMARY | 2024-06-22 06:40 | XMS_ITS ---
Author Organization [facility] Address [address] [place] [phone] Care Team Providers Care Associate Brand Manager Name Role Phone Lyn Light Primary Care Provider Unavailab Asif Jasso Jr [phone] REASON FOR VISIT GERD Encounters Encounter Location Date Provider Diagnosis [facility] Outpatient [address] [place] [id number] 06/22/2024 Asif Souza Jr Gastro-esophageal reflux disease without esophagitis K21.9 and Gastric polyps K31.7 Assessments Encounter Date Diagnosis (ICD Code) Assessment Notes Treatment Notes Treatment Clinical Notes Section Notes 06/22/2024 Gastro-esophagea l reflux disease without esophagitis (ICD-10 - K21.9) 06/22/2024 Gastric polyps (ICD-10 - K31.7) Plan Of Treatment Next Appt Details Provider Name:Asif castle Jr, 07/01/2025 09:20:00 AM, [address] [place] [address], [address] [facility], [place], [phone], Progress Notes * CADENCE GUOOB:1970 ([age] yo M)Acc No.[id number]:06/22/2024 EGD/MAC Patient: PRACHI LYNCH Provider: Kate Souza MD :1970 A ge:54 Y S ex:Male Date:06/22/2024 Address:[address] [place] [address] [phone] Pcp:Lyn Ware Subjective: * Chief Complaints: * 1 . GERD. * Medical History: Objective: * Vitals: Assessment: * Assessment: 1. G shannna-esophageal reflux disease without esophagitis - K21.9 (Primary) 2 .?Gastric polyps - K31.7 Plan: * Treatment: * Procedure Codes: 4 3239 UPPER GI ENDOSCOPY, BIOPSY * * The named appointment provid er may or may not be the originator of this progress note, and it is not deemed complete until electronically signed by the appointment provider. Sign off status: Pending * Provider: Kate Souza MD Date: 0 06/22/2024 Generated for Frankie leo/Dandy/Dedeitting on: 01:18 PM EDT
[2024-12-12 11:14] VITALS: BP 144/92; PULSE 100; TEMP 36.4; O2SAT 98; BMI 25.7
--- NOTE | 2024-12-12 11:14 | MHC.PC.OV ---
Vital Signs 12/12/24 11:14 Height 5 ft 8 in Weight 169 lb 4 oz BMI 25.7 BP 144/92 H Blood Pressure Location Lt brachial Position Sitting Pulse 100 Pulse Source Pulse Oximeter Temp 97.5 F Temp Source Temporal Artery Scan Pulse Oximetry (%) 98 Oxygen Delivery Method Room Air Intake Visit Reasons: bp Boiler Maker Required: No Accompanied by: Self / Same As Patient Allergies atorvastatin Adverse Reaction (Intermediate, Verified 12/12/24 11:31) elevated lilver enzymes lisinopril Adverse Reaction (Intermediate, Verified 12/12/24 11:31) cough Medication List - Last Reconciled 12/12/24 by Lyn Ware MD amlodipine 10 mg PO DAILY 90 days budesonide-formoterol 80-4.5 mcg/actuation inhalation cholecalciferol (vitamin D3) 50 mcg PO DAILY 90 days fluticasone propionate 44 mcg/actuation 1 puff inhalation BID 30 days pantoprazole 40 mg PO DAILY rosuvastatin 10 mg PO DAILY 90 days Tobacco use date assessed: 12/12/24 Dental Screening Dental Screen Date: 12/12/24 Did you have a dental visit in the last 12 months?: No Did you have a dental problem in the last 6 months where you did not have access to dental care?: No Was dental information given to patient?: Patient has dentist HPI HPI Comments History of Present Illness Details The patient is a 54-year-old male presenting with gastroesophageal reflux disease and associated gastric polyps. The reflux symptoms have been persistent, and an endoscopy performed earlier this year revealed gastric polyps, which were deemed non-significant by Dr. Souza in May. The patient is currently on pantoprazole for acid control and reports improvement in symptoms. The patient also reports mild depression, with a PHQ-9 score of 4, indicating minimal depressive symptoms. He does not engage in counseling and manages his symptoms independently, finding them not significantly impactful on daily life. Patient has erectile dysfunction and will be prescribed sildenafil. Testosterone levels will also be checked. He does have hypertension and today is borderline and will be recheck in 3 weeks by nurse navigator. Patient admits being compliant with medications, Preventative care discussions included prostate cancer screening due to a family history of prostate cancer in the patient's father. Additionally, the patient was queried about his last colonoscopy as part of cancer screening protocols. FORMERLY [facility], [facility] Medical History (Updated 12/12/24 @ 12:18 by Lyn Ware MD) Peptic ulcer disease Moderate persistent asthma Mild recurrent major depression Chronic cough Joint pain Elevated TSH Mixed hyperlipidemia Heat rash Transaminitis Dyslipidemia Essential hypertension Surgical History H/O colonoscopy History of abdominal surgery History of herniorrhaphy Family History Father Prostate cancer Mother Diabetes mellitus Social History Household Members: Spouse Housing: House Alcohol intake: current Alcohol intake frequency: a few times a week Alcohol type: beer Patient Tobacco Use Status: Former Tobacco user Tobacco use type: Cigarette e-Cigarette/Vaping Use: Never Used Second Hand Smoke Exposure: No service: No Current occupational status: employed Current occupational exposures/hazards: No Cognitive needs: No Hearing needs: No Vision needs: Yes Questionnaire PHQ-9 Over the last 2 weeks, how often have you been bothered by any of the following problems? 1. Little interest or pleasure in doing things: not at all 2. Feeling down, depressed, or hopeless: not at all 3. Trouble falling or staying asleep, or sleeping too much: nearly every day 4. Feeling tired or having little energy: several days 5. Poor appetite or overeating: not at all 6. Feeling bad about yourself - or that you are a failure or have let yourself or your family down: not at all 7. Trouble concentrating on things, such as reading the newspaper or watching television: not at all 8. Moving or speaking so slowly that other people could have noticed. Or the opposite - being so fidgety or restless that you have been moving around a lot more than usual: not at all 9. Thoughts that you would be better off or of hurting yourself in some way: not at all Total score: 4 Depression Screening Interpretation: Positive Depression Screening Follow-up: Existing condition and Follow-up Visit Requested Depression Screening Done: Yes 34465 - PHQ-9 Billing: Yes Source: Developed by Drs. Tray King, Callie Fofana, Chris Felix and colleagues, with an educational annette from [employer]. Thrive Questionnaire Date Thrive assessed: 08/06/24 I am a: Patient What is your living situation today?: I choose not to answer this question Within the past 12 months, did the food you bought not last and you didn't have the money to get more?: I choose not to answer this question Within the past 12 months, did you worry whether your food would run out before you got money to buy more?: I choose not to answer this question Do you have trouble paying for medicines?: No Do you have trouble getting transportation to medical appointments?: No Do you have trouble paying your heating and electricity bill?: I choose not to answer this question Do you have trouble taking care of your child, family member or friend?: No Do you have trouble with day-to-day activities such as bathing, preparing meals, shopping, managing finances, etc.?: No Are you currently unemployed and looking for a job?: No Are you interested in more education?: No Please select the resources that you would like help with: None Currently or been in a relationship where the following occur: I choose not to answer THRIVE Score: 0 AUDIT C Alcohol Use Questionnaire (AUDIT-C) 1. How often do you have a drink containing alcohol?: 2-4 times a month 2. How many drinks containing alcohol do you have on a typical day when you are drinking?: 5 or 6 3. How often do you have six or more drinks on one occasion?: Never Total Score: 4 MAXIMO-7 AMB Questionnaire MAXIMO-7 Date MAXIMO - 7 assessed: 08/06/24 Feeling nervous, anxious, or on edge: 0 = Not at all Not being able to stop or control worryin = Not at all Worrying too much about different things: 0 = Not at all Trouble relaxin = Not at all Being so restless that it is hard to sit still: 0 = Not at all Becoming easily annoyed or irritable: 0 = Not at all Feeling afraid as if something awful might happen: 0 = Not at all Total MAXIMO-7 score (0-4 normal; 5-9 mild; 10-14 moderate; 15-21 severe): 0 Source: Developed by Drs. Tray King, Callie Fofana, Chris Felix and colleagues, with an educational annette from [employer]. MAXIMO-7 Assessment Billing MAXIMO-7 Assessment Tool: MAXIMO-7 Assessment 60897 Review of Systems Const All systems reviewed & are unremarkable except as noted in HPI and below Card Denies chest pain at rest, Denies chest pain with activity, Denies edema, Denies irregular heart rhythm, Denies claudication, Denies dyspnea, Denies dyspnea on exertion, Denies orthopnea, Denies paroxysmal nocturnal dyspnea and Denies slow heart rate Resp Denies cough, Denies dyspnea and Denies dyspnea on exertion GI Denies abdominal pain, Denies change in bowel habits, Denies excessive flatus, Denies nausea and Denies vomiting Physical exam (Primary Care) Vital Signs: Last Vital Signs Temp 97.5 F 12/12/24 11:14 Pulse 100 12/12/24 11:14 BP 144/92 H 12/12/24 11:14 Pulse Ox 98 12/12/24 11:14 Oxygen Delivery Method Room Air 12/12/24 11:14 BMI result Body Mass Index 25.7 Tobacco/Smoking Status: Tobacco use Status Tobacco use date assessed 12/12/24 12/12/24 11:18 Patient Tobacco Use Status Former Tobacco user 12/12/24 11:18 Tobacco use type Cigarette 12/12/24 11:18 e-Cigarette/Vaping Use Never Used 12/12/24 11:18 PHQ-9: PHQ-9 Score PHQ-9: Total score 4 12/12/24 11:18 Depression Screening Interpretation: Positive Depression Screening Follow-up: Existing condition and Follow-up Visit Requested Thrive Assessment: Date of Thrive Assessment Date Thrive assessed 08/06/24 12/12/24 11:18 Currently or been in a relationship where the following occur: I choose not to answer Resp Effort & Inspection: normal respiratory effort Auscultation: clear to auscultation bilaterally Cardio Jugular venous distension: no JVD Rate: regular rate Rhythm: regular rhythm Heart sounds: S1 normal heart sound present and S2 normal heart sound present Extrem General: Yes full ROM Coding Level of Care Code Est Pt Level 4 (06324) Complex EM visit Add On G2211 Diagnoses Essential hypertension I10 Dyslipidemia E78.5 Mild recurrent major depression F33.0 Moderate persistent asthma J45.40 Erectile dysfunction N52.9 Additional Codes PHQ-9 - 36015 - PHQ-9 Billing: Yes ([id number]) MAXIMO-7 Assessment Billing - MAXIMO-7 Assessment Tool: MAXIMO-7 Assessment 61368 ([id number]) Time Spent (min) 21 Assessment & Plan Assessment & Plan (1) Essential hypertension: Code(s): I10 - Essential (primary) hypertension Category: Medical (2) Dyslipidemia: Code(s): E78.5 - Hyperlipidemia, unspecified Category: Medical (3) Mild recurrent major depression: Code(s): F33.0 - Major depressive disorder, recurrent, mild Category: Medical (4) Moderate persistent asthma: Code(s): J45.40 - Moderate persistent asthma, uncomplicated Category: Medical (5) Erectile dysfunction: Code(s): N52.9 - Male erectile dysfunction, unspecified Category: Medical Plan Plan Patient was informed and verbally consented to the use of an ambient scribe for clinic note documentation during this visit. 1. Gastroesophageal Reflux Disease The patient will continue on pantoprazole for acid control, which has shown improvement in symptoms. Follow-up endoscopy is not immediately necessary unless symptoms worsen. 2. Depression The patient is managing mild depressive symptoms independently and does not require counseling at this time. Monitoring of symptoms will continue, with the option for counseling if symptoms escalate. 3. Essential hypertension Continue amlodipine. Recheck blood pressure with nurse navigator in 3 weeks. 4. Erectile dysfunction Start sildenafil. Check testosterone.
--- OUTSIDE RECORDS SUMMARY | 2024-12-12 13:18 | XMS_ITS | Patient Health Record ---
Author Organization [facility] Address [address] [place] [id number] Care Team Providers Care Sales Correspondence Clerk Name Role Phone Lyn Light Primary Care Provider UnavailAsif Gunderson Jr Unavailable Allergies No Known Allergies Results Component Value Reference Range Notes Pathology Reviewed date:06/28/2024 09:57:38 AM Interpretation: Performing Lab:[facility], [address] [place] [id number] Notes/Report: Reason For Referral No Information Medications Medication [...] hour before morning meal Orally Once a day; Duration: 30 days 05/28/2024 Active Immunizations Vaccine Route [...] Problem Status W/U Status Risk Notes Problem Colon cancer screening (564834088) Colon cancer screening (Z12.11) Active confirmed Problem Abnormal UGI series (R93.3) Active confirmed Problem Gastroesophageal reflux disease (disorder) (172981555) Chronic GERD (K21.9) Active confirmed Vital Signs Temperature 98.4 degrees Fahrenheit 05/28/2024 Blood pressure diastolic 01 mm Hg 05/28/2024 Height 68 in 05/28/2024 Blood pressure systolic 001 mm Hg 05/28/2024 Weight 170.4 lbs 05/28/2024 BMI 25.91 kg/m2 05/28/2024 Encounters Encounter Location Date Provider Diagnosis [facility] [address] [place] [id number] 06/22/2024 Asif Souza Jr Gastro-esophageal reflux disease without esophagitis K21.9 and Gastric polyps K31.7 [facility] [address] [phone] 05/28/2024 Asif Souza Jr Chronic GERD K21.9 ; Abnormal UGI series R93.3 and Colon cancer screening Z12.11 [facility] [address] [address] 06/28/2024 Asif Souza Jr Assessments Encounter Date Diagnosis (ICD Code) Assessment Notes Treatment Notes Treatment Clinical Notes Section Notes 06/22/2024 Gastro-esophage al reflux disease without esophagitis (ICD-10 - K21.9) 06/22/2024 Gastric polyps (ICD-10 - K31.7) 05/28/2024 Abnormal UGI series (ICD-10 - R93.3) [...] 05/28/2024 Next Appt Details Provider Name:Asif castle , 07/01/2025 09:20:00 AM, [address] [place] [address], [facility], [place], [address], Insurance Providers Payer Name Payer Address Payer Phone Subscriber Number Group Number Insured Name Patient Relationship to Insured Coverage Start Date Coverage End Date [employer] [place] [address] [address] [place] [address] [id number] [id number] [id number] Self - patient is the insured Medical (General) History Medical History History ICD Code high blood pressure high cholesterol Colonoscopy 09/15, normal, 10-year follow -up Peptic ulcer disease, repair of perforat ion 1999 Surgical History Surgery Date(Month/Year) Right inguinal herniorrhaphy Repair of perforated peptic ulcer 1999
== END 2024-12-12 11:42 | disposition home or self-care (01) ==
LOC: HO.HMCH 10:53
PROVIDERS: PCP Internal Medicine; Visit Provider Internal Medicine
DX: I10 Essential (primary) hypertension (principal); E78.5 Hyperlipidemia, unspecified; F33.0 Major depressive disorder, recurrent, mild; J45.40 Moderate persistent asthma, uncomplicated; N52.9 Male erectile dysfunction, unspecified

== ENCOUNTER → 2024-12-12 10:52 | Outpatient (BNVA) | payer OTHER, SELFPAY | PROVIDERS: PCP Internal Medicine; Visit Provider Internal Medicine | DX: K21.9 Gastro-esophageal reflux disease without esophagitis (principal); I10 Essential (primary) hypertension; E78.5 Hyperlipidemia, unspecified; F33.0 Major depressive disorder, recurrent, mild; J45.40 Moderate persistent asthma, uncomplicated; N52.9 Male erectile dysfunction, unspecified | CPT/HCPCS: 96127 ==